=== PATIENT | male | born 1955 | race Caucasian/White ===

== ENCOUNTER 2017-07-16 06:39 | Day surgery (SDC) | payer MEDICARE, OTHER ==
[2017-07-12 12:18] VITALS: BMI 31.5
--- NOTE | 2017-07-15 12:28 | P.GSHP ---
History of Present Illness H&P Date: 07/16/17 CHIEF COMPLAINT: Gastrointestinal bleed HISTORY OF PRESENT ILLNESS: The patient is a 61-year-old male who presents with gastrointestinal bleed. Upper and lower endoscopy were offered for further evaluation and management. PAST MEDICAL HISTORY: Please see list. PAST SURGICAL HISTORY: Please see list. MEDICATIONS: Please see list. ALLERGIES: Please see list. SOCIAL HISTORY: No illicit drug use FAMILY HISTORY: No reports of Crohn disease or ulcerative colitis. REVIEW OF ORGAN SYSTEMS: CONSTITUTIONAL: No reports of fevers or chills. GI: Denies any blood in stools or constipation. PHYSICAL EXAM: VITAL SIGNS: Stable GENERAL: Well-developed pleasant in no acute distress. HEENT: No scleral icterus. Extraocular movements grossly intact. Moist buccal mucosa. NECK: Supple without lymphadenopathy. CHEST: Unlabored respirations. Equal bilateral excursions. CARDIOVASCULAR: Regular rate and rhythm. Distal 2+ pulses. ABDOMEN: Soft, nondistended. MUSCULOSKELETAL: No clubbing, cyanosis, or edema. ASSESSMENT: 1. Gastrointestinal bleeding PLAN: 1. Recommend proceeding with an upper and lower endoscopy Past Medical History Past Medical History: Asthma, CVA/TIA, GERD/Reflux, Hyperlipidemia, Hypertension , Sleep Apnea/CPAP/BIPAP Additional Past Medical History / Comment(s): USES CPAP. HAS PACEMAKER. CVA X3 , SL WEAKNESS RT SIDE. BLOOD IN STOOL OR FROM RECTUM, BEGAN 1 MO AGO. History of Any Multi-Drug Resistant Organisms: None Reported Past Surgical History: Back Surgery, Cholecystectomy, Heart Catheterization With Stent, Pacemaker Additional Past Surgical History / Comment(s): RT LEG Artery repaired from cardiac cath. EXC CATARACTS MISHA. STENT REPLACED 2016. PACEMAKER - [employer] 10/2015. Past Anesthesia/Blood Transfusion Reactions: Motion Sickness Date of Last Stent Placement:: 01/29/2012 Type of Cardiac Device: Permanent Pacemaker Device Placement Date:: 02/13/12 Smoking Status: Never smoker - Past Family History Father Family Medical History: Coronary Artery Disease (CAD), Myocardial Infarction ([place] ) Medications and Allergies Home Medications Medication Instructions Recorded Confirmed Type Amitriptyline HCl [Elavil] 75 mg PO HS 11/02/15 07/12/17 History Aspirin EC [Ecotrin Low Dose] 81 mg PO DAILY 11/02/15 07/12/17 History Atorvastatin [Lipitor] 40 mg PO BID 11/02/15 07/12/17 History Budesonide [Pulmicort Flexhaler] 2 puff INHALATION RT-BID 11/02/15 07/12/17 History Isosorbide Mononitrate ER [Imdur] 30 mg PO DAILY 11/02/15 07/12/17 History Metoprolol Tartrate [Lopressor] 25 mg PO BID 07/12/17 07/12/17 History Nitroglycerin Sl Tabs [Nitrostat] 0.4 mg SUBLINGUAL Q5M PRN 07/12/17 07/12/17 History Omeprazole [PriLOSEC] 20 mg PO AC-BRKFST 07/12/17 07/12/17 History Allergies Allergy/AdvReac Type Severity Reaction Status Date / Time levofloxacin [From Levaquin] AdvReac Confusion Verified 07/12/17 11:50 red dye AdvReac Nausea & Verified 07/12/17 11:50 Vomiting & Diarrhea
[~2017-07-16 06:39] MED LIST: LACTATED RINGERS 1,000 ML IV SCH
[2017-07-16] MEDS ORDERED: LACTATED RINGERS 1,000 ML IV ONE (07:07)
[2017-07-16 07:14] VITALS: TEMP 98.3
[2017-07-16] MEDS ORDERED: PROPOFOL 10 MG/ML 20 ML VIAL IV ONE (07:23)
--- NOTE | 2017-07-16 07:24 | P.HPADDEND ---
H&P Addendum H&P Addendum Date: 07/16/17 Patient reports no further bleeding in the last week. We'll proceed with upper and lower endoscopy.
--- NOTE | 2017-07-16 07:37 | P.PCN ---
Date of Procedure: 07/16/17 Description of Procedure: PREOPERATIVE DIAGNOSIS: Gastroesophageal reflux disease Gastrointestinal bleed POSTOPERATIVE DIAGNOSIS: Gastroesophageal reflux disease Gastrointestinal bleed Diaphragmatic hiatal hernia without obstruction Erosive esophagitis OPERATION: Esophagogastroduodenoscopy with biopsies along antrum SURGEON: Alysha Krishna MD ANESTHESIA: MAC. INDICATIONS: The patient is a 61-year-old male who presents with a history of gastrointestinal bleed and reflux disease. Benefits and risks of the procedure were described. Informed consent was obtained. DESCRIPTION: The patient was brought into the endoscopy suite and laid in the left lateral decubitus position. An Olympus gastroscope was passed along the posterior oropharynx down to the distal esophagus where the squamocolumnar junction was encountered at 40 cm from the incisors. The stomach was entered and bile reflux was found. Additional findings are listed below. Biopsies with cold forceps were obtained of the antrum. The first through third portion of the duodenum was examined and unremarkable. Retroflexion of the scope confirmed Hill grade 2 lower esophageal valve. The squamocolumnar junction demostrated LA grade B erosive esophagitis. The stomach was desufflated. The patient tolerated the procedure well. FINDINGS: Squamocolumnar junction 40 cm from the incisors. Diaphragmatic hiatus at 41 cm. Hiatal hernia 1 cm. Hill grade 2 lower esophageal valve. LA grade B erosive esophagitis. Chronic gastritis, superficial No active duodenitis. RECOMMENDATIONS: Continue medical therapy. Further recommendations pending results of pathology report. Upper endoscopy as needed.
--- NOTE | 2017-07-16 07:56 | P.PCN ---
Date of Procedure: 07/16/17 Description of Procedure: PREOPERATIVE DIAGNOSIS: Gastrointestinal bleeding POSTOPERATIVE DIAGNOSIS: Gastrointestinal bleeding Hemorrhoids, internal. Cecal polyp OPERATION: Colonoscopy to the ileocecal valve and appendiceal orifice. Colonoscopy with cold forceps biopsy at cecum SURGEON: Alysha Krishna MD. ANESTHESIA: MAC. INDICATIONS: The patient is a 61-year-old female who presents for gastrointestinal bleeding. Benefits and risks were described and informed consent was obtained. DESCRIPTION OF PROCEDURE: The patient had undergone Gatorade, MiraLAX and Dulcolax prep. He had been brought into the operating room and laid in the left lateral decubitus position. After adequate intravenous sedation, the rectum was examined with 2% lidocaine jelly. The prostate was smooth and without abnormality No external hemorrhoids were encountered. The rectal tone was within normal limits. No lesions were palpated in the rectal vault. An Olympus colonoscope was advanced until the ileocecal valve and appendiceal orifice were clearly viewed. The prep was excellent with clear visualization of the mucosal folds. The scope was removed with visualization of each mucosal fold. No scattered diverticulosis was encountered. Cecal colonic polyp was found. No evidence of focal colitis was found. Retroflexion of the scope demonstrated grade 3 internal hemorrhoids without active bleeding or inflammation. The colon was desufflated. The patient had tolerated the procedure well. Withdrawal time was over 6 minutes. FINDINGS: Internal hemorrhoids, grade 3, with recent inflammation No external prolapsed hemorrhoids. No arteriovenous malformations. No scattered diverticulosis No focal colitis. Cecal polyp 2 mm removed hyperplastic RECOMMENDATIONS: Lower endoscopy in 8 to 10 years per screening guidelines, 2025. Plan - Discharge Summary Discharge Rx Participant: No New Discharge Prescriptions: No Action Isosorbide Mononitrate ER [Imdur] 30 mg PO DAILY Budesonide [Pulmicort Flexhaler] 2 puff INHALATION RT-BID Atorvastatin [Lipitor] 40 mg PO BID Aspirin EC [Ecotrin Low Dose] 81 mg PO DAILY Amitriptyline HCl [Elavil] 75 mg PO HS Metoprolol Tartrate [Lopressor] 25 mg PO BID Nitroglycerin Sl Tabs [Nitrostat] 0.4 mg SUBLINGUAL Q5M PRN PRN Reason: CP Omeprazole [PriLOSEC] 20 mg PO AC-BRKFST Discharge Medication List Amitriptyline HCl [Elavil] 75 mg PO HS 11/02/15 [History] Aspirin EC [Ecotrin Low Dose] 81 mg PO DAILY 11/02/15 [History] Atorvastatin [Lipitor] 40 mg PO BID 11/02/15 [History] Budesonide [Pulmicort Flexhaler] 2 puff INHALATION RT-BID 11/02/15 [History] Isosorbide Mononitrate ER [Imdur] 30 mg PO DAILY 11/02/15 [History] Metoprolol Tartrate [Lopressor] 25 mg PO BID 07/12/17 [History] Nitroglycerin Sl Tabs [Nitrostat] 0.4 mg SUBLINGUAL Q5M PRN 07/12/17 [History] Omeprazole [PriLOSEC] 20 mg PO AC-BRKFST 07/12/17 [History] Follow up Appointment(s)/Referral(s): Alysha Krishna MD [STAFF PHYSICIAN] - 07/31/17 Patient Instructions/Handouts: Hemorrhoids (GEN), Rectal Bleeding (DC) Discharge Disposition: HOME SELF-CARE
[2017-07-16 08:19] VITALS: BP 133/72; PULSE 62; RESP 16
== END 2017-07-16 08:36 | disposition home or self-care (01) ==
LOC: ORWHC2ENDO 06:39
PROVIDERS: ATTEND Surgery Plastic and Reconstructive Surgery
DX: K29.30 Chronic superficial gastritis without bleeding (principal); D12.0 Benign neoplasm of cecum; K64.2 Third degree hemorrhoids; K21.0 Gastro-esophageal reflux disease with esophagitis; K22.10 Ulcer of esophagus without bleeding; E78.5 Hyperlipidemia, unspecified; I10 Essential (primary) hypertension; I25.10 Atherosclerotic heart disease of native coronary artery without angina pectoris; J44.9 Chronic obstructive pulmonary disease, unspecified; I69.351 Hemiplegia and hemiparesis following cerebral infarction affecting right dominant side; G47.33 Obstructive sleep apnea (adult) (pediatric); Z99.89 Dependence on other enabling machines and devices; Z95.0 Presence of cardiac pacemaker; Z95.5 Presence of coronary angioplasty implant and graft; Z79.82 Long term (current) use of aspirin; Z79.51 Long term (current) use of inhaled steroids; Z79.891 Long term (current) use of opiate analgesic; Z79.899 Other long term (current) drug therapy; Z88.1 Allergy status to other antibiotic agents; Z91.09 Other allergy status, other than to drugs and biological substances
CPT/HCPCS: 88305; 45380; 43239; J2704

== ENCOUNTER 2017-08-03 07:09 | Day surgery (SDC) | payer MEDICARE, OTHER ==
[2017-08-01 10:11] VITALS: BMI 32.3
[~2017-08-03 07:09] MED LIST changes: +DEXAMETHASONE SOD PHOSPHATE 10 MG/ML 1 ML VIAL IV ONE; +LIDOCAINE 1% 20 ML VIAL (10MG/ML) FOR IV START INTRADERMA PRN; +MIDAZOLAM 2 MG/2 ML VIAL IV PRN; +ONDANSETRON 4 MG/2 ML VIAL IVP ONE; +Pre Op ABX Message 1 EACH MISC MISCELLANE ONE; +SCOPOLAMINE 1.5MG/72HR PATCH TRANSDERM ONE
[2017-08-03] MEDS ORDERED: HEPARIN SODIUM,PORCINE 5,000 UNIT/ML 1 ML VIAL SQ ONE (07:41)
--- NOTE | 2017-08-03 07:41 | P.GSHP ---
History of Present Illness H&P Date: 08/03/17 CHIEF COMPLAINT: Rectal bleeding HISTORY OF PRESENT ILLNESS: The patient is a 61-year-old male who presents for removal of hemorrhoids. PAST MEDICAL HISTORY: Please see list. PAST SURGICAL HISTORY: Please see list. MEDICATIONS: Please see list. ALLERGIES: Please see list. SOCIAL HISTORY: No illicit drug use FAMILY HISTORY: No reports of Crohn disease or ulcerative colitis. REVIEW OF ORGAN SYSTEMS: CONSTITUTIONAL: No reports of fevers or chills. PHYSICAL EXAM: VITAL SIGNS: Stable GENERAL: Well-developed pleasant in no acute distress. HEENT: No scleral icterus. Extraocular movements grossly intact. Moist buccal mucosa. NECK: Supple without lymphadenopathy. CHEST: Unlabored respirations. Equal bilateral excursions. CARDIOVASCULAR: Regular rate and rhythm. Distal 2+ pulses. ABDOMEN: Soft, nontender, nondistended. MUSCULOSKELETAL: No clubbing, cyanosis, or edema. ASSESSMENT: 1. Rectal bleeding PLAN: 1. Recommend removal of hemorrhoids Past Medical History Past Medical History: Asthma, CVA/TIA, GERD/Reflux, Hyperlipidemia, Hypertension , Sleep Apnea/CPAP/BIPAP Additional Past Medical History / Comment(s): USES CPAP. HAS PACEMAKER. CVA X3 , SL WEAKNESS RT SIDE. BLOOD IN STOOL OR FROM RECTUM, BEGAN 1 MO AGO. History of Any Multi-Drug Resistant Organisms: None Reported Past Surgical History: Back Surgery, Cholecystectomy, Heart Catheterization With Stent, Pacemaker Additional Past Surgical History / Comment(s): RT LEG Artery repaired from cardiac cath. EXC CATARACTS MISHA. STENT REPLACED 2016. PACEMAKER - [employer] 10/2015. colonoscopy 07/15/2017 Past Anesthesia/Blood Transfusion Reactions: Motion Sickness Date of Last Stent Placement:: 01/29/2012 Type of Cardiac Device: Permanent Pacemaker Device Placement Date:: 02/13/12 Smoking Status: Never smoker - Past Family History Father Family Medical History: Coronary Artery Disease (CAD), Myocardial Infarction ([place] ) Medications and Allergies Home Medications Medication Instructions Recorded Confirmed Type Amitriptyline HCl [Elavil] 75 mg PO HS 11/02/15 08/03/17 History Aspirin EC [Ecotrin Low Dose] 81 mg PO DAILY 11/02/15 08/03/17 History Atorvastatin [Lipitor] 40 mg PO HS 11/02/15 08/03/17 History Budesonide [Pulmicort Flexhaler] 2 puff INHALATION RT-BID 11/02/15 08/03/17 History Isosorbide Mononitrate ER [Imdur] 30 mg PO QAM 11/02/15 08/03/17 History Metoprolol Tartrate [Lopressor] 12.5 mg PO BID 07/12/17 08/03/17 History Nitroglycerin Sl Tabs [Nitrostat] 0.4 mg SUBLINGUAL Q5M PRN 07/12/17 08/03/17 History Docusate [Colace] 100 mg PO HS 08/01/17 08/03/17 History Polyethylene Glycol 3350 [Clearlax] 17 gm PO DAILY PRN 08/01/17 08/03/17 History Allergies Allergy/AdvReac Type Severity Reaction Status Date / Time levofloxacin [From Levaquin] AdvReac Confusion Verified 08/01/17 10:01 red dye AdvReac Nausea & Verified 08/01/17 10:01 Vomiting & Diarrhea Surgical - Exam Vital Signs Temp Pulse Resp BP Pulse Ox 98.3 F 60 16 153/76 99 08/03/17 07:26 08/03/17 07:26 08/03/17 07:26 08/03/17 07:26 08/03/17 07:26
[2017-08-03] MEDS ORDERED: metroNIDAZOLE-NS PMX 500 MG in SALINE 100 100ML.BAG IVPB ONE (07:45)
[2017-08-03] MEDS ORDERED: BUPIVACAINE LIPOSOME/PF 1.3% 20 ML, SODIUM CHLORIDE 0.9% 10 ML MISCELLANE ONE ×2 (07:45)
[2017-08-03] MEDS ORDERED: ceFAZolin IN SWFI 2 GM/20 ML SYRINGE IVP ONE (07:45)
[2017-08-03] MEDS ORDERED: MIDAZOLAM 2 MG/2 ML VIAL ONE ×2 (09:04)
[2017-08-03] MEDS ORDERED: diphenhydrAMINE 50 MG/ML 1 ML VIAL ONE ×2 (09:04)
[2017-08-03] MEDS ORDERED: fentaNYL (PF) 50 MCG/ML 2 ML AMP ONE ×2 (09:04)
[2017-08-03] MEDS ORDERED: LIDOCAINE 1%-EPI 1:100,000 30 ML VIAL SUBMUCOSAL ONE (09:39)
--- NOTE | 2017-08-03 10:02 | P.OP ---
Date of Procedure: 08/03/17 Description of Procedure: SURGEON: FAWN STALEY MD SILVERWARE WASHER: NONE. PREOPERATIVE DIAGNOSES: 1. History of complicated internal hemorrhoids, grade 4. 2. History of complicated external hemorrhoids, grade 4. 3. History of rectal bleeding. POSTOPERATIVE DIAGNOSES: 1. History of complicated internal hemorrhoids, grade 4. 2. History of complicated external hemorrhoids, grade 4. 3. History of rectal bleeding. OPERATION: 1. Excision of internal and external hemorrhoids x 3 using LigaSure. ANESTHESIA: MAC, spinal with Exparel mixture. ESTIMATED BLOOD LOSS: 3 mL. PATHOLOGY: 1. Internal, external hemorrhoidal complex x 3. FINDINGS: 1. Grade 4 internal/external hemorrhoidal cushion 3 excised. 2. No anal stricture upon excision of hemorrhoidal complexes. INDICATIONS: The patient is a 61-year-old male who presents with rectal bleeding including complicated internal/external hemorrhoids. He completed a colonoscopy. Surgical intervention was described for hemorrhoidectomy. Benefits and risks of the procedure, including bleeding, infection, incontinence , recurrent pain and recurrence of the hemorrhoids were discussed in detail. Informed consent was obtained. DESCRIPTION: Patient was brought to the operating room. After spinal anesthetic and IV sedation, he was then repositioned the prone jackknife position. Next, the perineum and buttocks was spread apart using Mastisol. The perineum was then prepped and draped in standard sterile fashion using Betadine. Preoperative medication was confirmed. Prior to incision, a timeout protocol was confirmed with surgical team. Initially 2 fingers was easily inserted for dilation of the anus. A perineal block using Exparel was placed. Grade 4 hemorrhoids along all 3 quadrants were identified. Next, using a Hill-Rhodes anoscope, each hemorrhoidal cushion was addressed using a hand-held LigaSure after elevating each hemorrhoidal complex using forceps. At the end of the case, digital evaluation were performed without any features of the anal stricture or stenosis. At the 6-o'clock position, the anal muscle fiber was identified. Hemostasis was checked. Several 4 x 4 gauze and mesh underwear was placed. At the end of the procedure, needle, sponge, and counts had been verified correct by the surgical scrub technologist. The patient then had tolerated the procedure well. Intraoperative findings including postoperative care instructions were discussed. Plan - Discharge Summary New Discharge Prescriptions: No Action Isosorbide Mononitrate ER [Imdur] 30 mg PO QAM Budesonide [Pulmicort Flexhaler] 2 puff INHALATION RT-BID Atorvastatin [Lipitor] 40 mg PO HS Aspirin EC [Ecotrin Low Dose] 81 mg PO DAILY Amitriptyline HCl [Elavil] 75 mg PO HS Metoprolol Tartrate [Lopressor] 12.5 mg PO BID Nitroglycerin Sl Tabs [Nitrostat] 0.4 mg SUBLINGUAL Q5M PRN PRN Reason: CP Polyethylene Glycol 3350 [Clearlax] 17 gm PO DAILY PRN PRN Reason: Constipation Docusate [Colace] 100 mg PO HS Discharge Medication List Amitriptyline HCl [Elavil] 75 mg PO HS 11/02/15 [History] Aspirin EC [Ecotrin Low Dose] 81 mg PO DAILY 11/02/15 [History] Atorvastatin [Lipitor] 40 mg PO HS 11/02/15 [History] Budesonide [Pulmicort Flexhaler] 2 puff INHALATION RT-BID 11/02/15 [History] Isosorbide Mononitrate ER [Imdur] 30 mg PO QAM 11/02/15 [History] Metoprolol Tartrate [Lopressor] 12.5 mg PO BID 07/12/17 [History] Nitroglycerin Sl Tabs [Nitrostat] 0.4 mg SUBLINGUAL Q5M PRN 07/12/17 [History] Docusate [Colace] 100 mg PO HS 08/01/17 [History] Polyethylene Glycol 3350 [Clearlax] 17 gm PO DAILY PRN 08/01/17 [History]
[2017-08-03 10:22] VITALS: TEMP 98.2
[2017-08-03 10:24] VITALS: RESP 16
[2017-08-03 14:06] VITALS: BP 128/76; PULSE 66
== END 2017-08-03 16:35 | disposition home or self-care (01) ==
LOC: OR 07:09
PROVIDERS: ATTEND Surgery Plastic and Reconstructive Surgery
DX: K64.3 Fourth degree hemorrhoids (principal); K64.4 Residual hemorrhoidal skin tags; J45.909 Unspecified asthma, uncomplicated; K21.9 Gastro-esophageal reflux disease without esophagitis; E78.5 Hyperlipidemia, unspecified; I10 Essential (primary) hypertension; G47.33 Obstructive sleep apnea (adult) (pediatric); I69.351 Hemiplegia and hemiparesis following cerebral infarction affecting right dominant side; Z95.0 Presence of cardiac pacemaker; Z95.5 Presence of coronary angioplasty implant and graft; Z99.89 Dependence on other enabling machines and devices; Z79.82 Long term (current) use of aspirin; Z79.51 Long term (current) use of inhaled steroids; Z79.899 Other long term (current) drug therapy; Z88.1 Allergy status to other antibiotic agents; Z91.09 Other allergy status, other than to drugs and biological substances
CPT/HCPCS: 88304; 46260; J2250; J1200; J1644; J1100; J2405; J3010; C9290; J0690

== ENCOUNTER 2017-08-15 01:23 | Emergency (ER) | payer MEDICARE, OTHER ==
[2017-08-15] MEDS ORDERED: ACETAMINOPHEN TAB 500 MG TAB ONE (02:56)
[2017-08-15 06:32] LABS: Partial Thromboplastin Time 22.1 sec (22.0-30.0); Prothrombin Time 9.8 sec (9.0-12.0)
[2017-08-15 06:34] LABS: Basophils % (A) 0 %; Eosinophils # (A) 0.1 k/uL (0-0.7); Eosinophils % (A) 1 %; HCT 42.5 % (39.0-53.0); HGB 14.4 gm/dL (13.0-17.5); Lymphocytes # (A) 1.5 k/uL (1.0-4.8); Lymphocytes % (A) 18 %; MCH 28.8 pg (25.0-35.0); MCV 84.8 fL (80.0-100.0); Mean Platelet Volume 6.8; Monocytes # (A) 0.5 k/uL (0-1.0); Monocytes % (A) 6 %; Neutrophils # (A) 6.4 k/uL (1.3-7.7); Neutrophils % (A) 74 %; Platelet Count 290 k/uL (150-450); RBC 5.01 m/uL (4.30-5.90); RDW 13.3 % (11.5-15.5); WBC 8.7 k/uL (3.8-10.6)
[2017-08-15 06:37] LABS: ALT 39 U/L (21-72); AST 27 U/L (17-59); Albumin 4.2 g/dL (3.5-5.0); Alkaline Phosphatase 105 U/L (38-126); Anion Gap 14 mmol/L; Blood Urea Nitrogen 12 mg/dL (9-20); Calcium 9.4 mg/dL (8.4-10.2); Carbon Dioxide 27 mmol/L (22-30); Chloride 100 mmol/L (98-107); Glucose 111 mg/dL (74-99); Potassium 4.7 mmol/L (3.5-5.1); Sodium 141 mmol/L (137-145); Total Bilirubin 0.5 mg/dL (0.2-1.3); Total Protein 7.1 g/dL (6.3-8.2)
== END 2017-08-15 02:56 | disposition home or self-care (01) ==
LOC: EC 01:23
DX: K62.5 Hemorrhage of anus and rectum (principal); Z79.82 Long term (current) use of aspirin; Z79.899 Other long term (current) drug therapy; Z79.51 Long term (current) use of inhaled steroids; Z88.1 Allergy status to other antibiotic agents; Z91.09 Other allergy status, other than to drugs and biological substances; Z98.890 Other specified postprocedural states
CPT/HCPCS: 36415; 80053; 85025; 85610; 85730; 99283

== ENCOUNTER → 2017-12-11 | Outpatient (CLI) | payer MEDICARE, OTHER ==
--- NOTE | 2017-12-11 18:07 | PN ---
PROGRESS NOTE SLEEP CENTER PROGRESS NOTE: This is a 62-year-old male patient coming in for a followup regarding his obstructive sleep apnea. I diagnosed this patient with obstructive sleep apnea back in 2014. At that time the patient was diagnosed having moderate to severe LAISHA with an AHI of 22. The patient has been on CPAP therapy for the past 3 years and he is coming in for a follow-up compliancy check and he wants his supplies to be renewed. I checked his CPAP machine. He has an auto set ResMed unit with a minimum pressure of 4, maximum pressure of 20. I noted the compliance data to be excellent. His CPAP use for more than 4 hours is 100%. He is averaging around 6.9 hours of CPAP use per night. His AHI while on treatment is down to 0.8. His average pressure is 11 and his leak factor is 6 L/minute. Over the past 3 years the patient has gained about 15 pounds. He used to weight 210 and is up to 225. Nevertheless, he is benefitting from the treatment. His sleep quality is the same, which is very good. He is waking up refreshed and alert during the day. No hypersomnia or sleepiness. No falling asleep while driving or performing routine day-to-day activities. REVIEW OF SYSTEMS: CONSTITUTIONAL: Positive for weight gain. Otherwise, no angina, no shortness of breath. No nocturnal heartburn. No dreams. No nightmares. No restlessness in the lower extremities. No pain. No depression or anxiety. Twelve-point review of systems was done. Positive findings were all mentioned above in the history of present illness. PHYSICAL EXAMINATION: BP is 138/70, pulse 62, respirations 16, temperature 98.3, saturation 97% on room air. Weight is 225, height is 5 feet 9 inches, neck size 18-1/2 inches. GENERAL APPEARANCE: Calm, comfortable. Head is atraumatic, normocephalic. Neck is short, supple. Crowding in posterior pharynx. There is no goiter or neck mass. LUNGS: Clear to auscultation. HEART: Sounds regular rate and rhythm. Normal S1, S2. No S3. No murmurs. ABDOMEN: Soft, nontender. No organomegaly. EXTREMITIES: No edema. No cyanosis or clubbing. IMPRESSION: 1. Obstructive sleep apnea, moderate to severe, with AHI of 22, currently on CPAP. The patient is utilizing APAP minimum pressure of 4, maximum pressure of 20. 2. Hypersomnia, recovered. 3. Previous history of cerebrovascular accident. 4. Coronary artery disease. 5. Hypertension. 6. Hyperlipidemia. 7. Bronchial asthma. 8. Chronic back pain. PLAN: 1. Continue CPAP therapy at the same level of pressure. 2. Renew the patient's supplies. The patient is using an AirFit P10 nose pillow, large size, and this will be renewed through [facility]. 3. Encourage weight loss. 4. See me back in a few years in followup. MMODL / IJN: [id number] /
== END | disposition home or self-care (01) ==
LOC: SLEEP 15:29
PROVIDERS: ATTEND Internal Medicine Critical Care Medicine
DX: G47.33 Obstructive sleep apnea (adult) (pediatric) (principal); I25.10 Atherosclerotic heart disease of native coronary artery without angina pectoris; I10 Essential (primary) hypertension; E78.5 Hyperlipidemia, unspecified; J45.909 Unspecified asthma, uncomplicated; M54.9 Dorsalgia, unspecified; G89.29 Other chronic pain; Z99.89 Dependence on other enabling machines and devices; Z86.73 Personal history of transient ischemic attack (TIA), and cerebral infarction without residual deficits

== ENCOUNTER → 2018-06-21 | Outpatient (CLI) | payer BC, MEDICARE ==
[2018-06-21 17:10] LABS: HCT 41.5 % (39.0-53.0); HGB 13.8 gm/dL (13.0-17.5); MCH 29.8 pg (25.0-35.0); MCHC 33.3 g/dL (31.0-37.0); MCV 89.5 fL (80.0-100.0); Mean Platelet Volume 7.1; Platelet Count 199 k/uL (150-450); RBC 4.63 m/uL (4.30-5.90); WBC 6.2 k/uL (3.8-10.6)
[2018-06-21 17:24] LABS: Anion Gap 5 mmol/L; Blood Urea Nitrogen 18 mg/dL (9-20); Carbon Dioxide 31 mmol/L (22-30); Chloride 105 mmol/L (98-107); Potassium 4.5 mmol/L (3.5-5.1); Sodium 141 mmol/L (137-145)
== END | disposition home or self-care (01) ==
LOC: LABPAT 16:43
PROVIDERS: ATTEND Internal Medicine Interventional Cardiology
DX: Z01.812 Encounter for preprocedural laboratory examination (principal); R42 Dizziness and giddiness; R06.02 Shortness of breath; I10 Essential (primary) hypertension
CPT/HCPCS: 36415; 80051; 82565; 84520; 85027

== ENCOUNTER 2018-07-04 10:13 | Day surgery (SDC) | payer MEDICARE, BC ==
[~2018-07-04 10:13] MED LIST changes: +ALPRAZolam 0.25 MG TAB PO PRN; +ALPRAZolam 0.5 MG TAB PO PRN; +ASPIRIN 325 MG TAB PO STA; +ATORVASTATIN 80 MG TAB PO STA; -DEXAMETHASONE SOD PHOSPHATE 10 MG/ML 1 ML VIAL IV ONE; -LACTATED RINGERS 1,000 ML IV SCH; -LIDOCAINE 1% 20 ML VIAL (10MG/ML) FOR IV START INTRADERMA PRN; -MIDAZOLAM 2 MG/2 ML VIAL IV PRN; +NITROGLYCERIN SL TABS 0.4 MG TAB SUBLINGUAL PRN; -ONDANSETRON 4 MG/2 ML VIAL IVP ONE; -Pre Op ABX Message 1 EACH MISC MISCELLANE ONE; -SCOPOLAMINE 1.5MG/72HR PATCH TRANSDERM ONE; +SODIUM CHLORIDE 0.9% 1,000 ML in EMPTY BAG 1 BAG IV ONE
[2018-07-04] MEDS ORDERED: LIDOCAINE 1% INJ 10MG/ML (20 ML MDV) ONE (17:41)
[2018-07-04] MEDS ORDERED: VERAPAMIL 2.5 MG/ML 2 ML AMP ONE (17:41)
[2018-07-04] MEDS ORDERED: HEPARIN SODIUM 1,000 UN/ML (10ML VL) ONE (17:41)
[2018-07-04] MEDS ORDERED: MIDAZOLAM 2 MG/2 ML VIAL IVP ONE (18:00)
[2018-07-04] MEDS ORDERED: LIDOCAINE 1% INJ 10MG/ML (20 ML MDV) SQ ONE (18:01)
[2018-07-04] MEDS ORDERED: VERAPAMIL SYRINGE (5 MG/10 ML) INTRAARTER ONE (18:02)
[2018-07-04] MEDS ORDERED: HYDROmorphone 2 MG/ML 1 ML SYRINGE IVP ONE (18:03)
[2018-07-04] MEDS ORDERED: HEPARIN SODIUM 1,000 UN/ML (10ML VL) IV ONE ×2 (18:03→18:52)
[2018-07-04] MEDS ORDERED: CLOPIDOGREL 75 MG TAB ONE ×2 (18:28)
[2018-07-04] MEDS ORDERED: ADENOSINE 90 MG in SODIUM CHLORIDE 0.9% 60 ML IVP ONE (18:30)
[2018-07-04] MEDS: NITROGLYCERIN 1000MCG/10ML SYRINGE INTRACORON ONE ×2 (18:30→18:47)
[2018-07-04] MEDS ORDERED: CLOPIDOGREL 75 MG TAB PO ONE (18:35)
[2018-07-04] MEDS ORDERED: hydrALAZINE HCL 20 MG/ML 1 ML VIAL ONE ×2 (18:56→19:31)
[2018-07-04] MEDS ORDERED: METOPROLOL TARTRATE 5 MG/5 ML VIAL IVP ONE ×2 (18:56→18:58)
[2018-07-04] MEDS ORDERED: hydrALAZINE HCL 20 MG/ML 1 ML VIAL IV ONE (18:58)
[2018-07-04] MEDS ORDERED: IOPAMIDOL-370 150ML BTL INJ ONE (18:58)
[2018-07-04] MEDS ORDERED: MECLIZINE 25 MG TAB PO PRN (19:23)
[2018-07-04] MEDS ORDERED: traMADol 50 MG TAB PO PRN (19:23)
[2018-07-04] MEDS ORDERED: NITROGLYCERIN SL TABS 0.4 MG TAB SUBLINGUAL PRN ×2 (19:23→19:24)
[2018-07-04] MEDS ORDERED: POLYETHYLENE GLYCOL 3350 17 GM POWD.PACK PO PRN (19:23)
[2018-07-04] MEDS ORDERED: ATROPINE SULFATE 0.1 MG/ML 10ML SYRINGE IV PRN (19:24)
[2018-07-04] MEDS ORDERED: ZOLPIDEM 5 MG TAB PO PRN (19:24)
[2018-07-04] MEDS ORDERED: RX INFO: IV CONTRAST WAS GIVEN 1 EACH MISC MISCELLANE PRN (19:24)
[2018-07-04] MEDS ORDERED: MAG HYDROX/AL HYDROX/SIMETH 30 ML CUP PO PRN (19:24)
[2018-07-04] MEDS ORDERED: SODIUM CHLORIDE 0.9% 1,000 ML IV SCH (19:30)
[2018-07-04] MEDS ORDERED: HYDROmorphone 0.5 MG/0.5 ML SYRINGE IVP PRN (19:34)
[2018-07-04] MEDS ORDERED: FLUTICASONE 110 MCG INHALER INHALATION SCH ×2 (20:00→22:35)
--- NOTE | 2018-07-04 20:09 | LTR ---
July 04, 2018 To: Dr. Marc Blake Re: Eric Arellano (55) Dear Dr. Blake, Mr. Eric Arellano underwent heart catheterization and was found to have severe disease involving the mid right coronary artery. He underwent successful stenting of the right coronary artery with good angiographic results and without any complication. I want to thank you for allowing us to participate in his care and please do not hesitate to call if you have questions or concerns. Sincerely, MD MARTIR Montanez / CHRIS: [id number] /
--- NOTE | 2018-07-04 20:09 | CC ---
CARDIAC CATHETERIZATION REPORT DATE OF SERVICE: 07/04/2018 PERFORMING PHYSICIAN: Ag Young MD, rodeo clown. PROCEDURES PERFORMED: 1. Selective right and left coronary angiogram. 2. Left heart catheterization. 3. Fractional flow reserve (FFR) of the right coronary artery. 4. Successful stenting of the mid right coronary artery using a 4.0 x 33 and a 3.5 x 12 mm Xience drug-eluting stents with excellent angiographic results. INDICATION: This is a pleasant 62-year-old gentleman with known history of coronary artery disease and prior stenting of the diagonal branch of the LAD. He was experiencing exertional shortness of breath that reminded him of his symptoms before his coronary artery stenting back in 2011. Because of that, a heart catheterization was advised. APPROACH: Right radial artery. COMPLICATIONS: None. LEVEL OF SEDATION: Moderate, with sedation length of 60 minutes. PROCEDURE DESCRIPTION: After obtaining informed consent, the patient was brought to the cardiac labor arbitrator. The right radial artery was cannulated using micropuncture technique and the micropuncture wire passed easily. Then I placed a 6-Salvadorean sheath in the right radial artery. I gave the patient 2 mg of Verapamil IA and 10,000 units of heparin and subsequently of heparin as well. I did selective right and left coronary angiogram using JR4 and JL3.5 catheters. Left heart catheterization was performed using 6-Salvadorean pigtail catheter. After that I did FFR of the right coronary artery and stenting of the right coronary artery. Please see a separate paragraph for that. SELECTIVE CORONARY ANGIOGRAM: 1. The right coronary artery is a large-caliber vessel and it is a dominant vessel. The proximal right appeared to be angiographically normal. The mid right had a long tubular lesion that appeared to be in the range of 60% to 70%. Then I did FFR on it and that came back to be 0.81. The right distally appeared to be normal and bifurcated into PDA and PLV branches. Both are angiographically normal. 2. The left main is angiographically normal. It bifurcates into left circumflex and left anterior descending artery. 3. The left circumflex is a large-caliber vessel. It is a nondominant vessel. The proximal circumflex appeared to be angiographically normal. The mid circumflex is normal and gives rise to a large OM branch which appeared to be normal and the circumflex continued after that as a medium-caliber vessel in the AV groove. 4. The LAD. The proximal LAD is angiographically normal. It gives rise to a large diagonal branch which is stented and the stent is patent. The mid LAD and distal LAD are angiographically normal. HEMODYNAMICS: The left ventricular end-diastolic pressure was 12 mmHg without any significant gradient across the aortic valve. FFR OF THE RIGHT CORONARY ARTERY AND ANGIOPLASTY OF THE RCA: Anticoagulation was initiated using heparin with 10,000 units and an additional 3000 units throughout the procedure with continuous ACT monitoring as well. I did after zeroing the Doppler wire and equalizing between the Doppler wire and the guiding catheter which was a JR4 guiding catheter, I did an FFR per IV adenosine infusion and FFR came in to be 0.81. I decided to proceed with stenting of the right coronary artery. I attempted doing direct stenting of the RCA, but I was unable. At that point I did balloon angioplasty using a 3.5 mm balloon and I attempted the stent again, but I was unable. At that point, I was able to get the stent with adjunctive use of GuideLiner. The stent was 4.0 x 33, which was positioned under fluoroscopy guidance and deployed under 12 atmospheres for 20 seconds. The following angiogram showed what seems to be dissection which I decided to cover, and I did deploy 3.5 x 12 mm another Xience drug-eluting stent where the stent was positioned under fluoroscopy guidance and deployed under 12 atmospheres for 20 seconds. Then I did overlap area between the 2 stents. The following angiogram showed excellent angiographic results and the procedure was completed without any complication. CONCLUSION: 1. Severe disease involving the mid right coronary artery. 2. Patent stent in the first diagonal branch of the LAD. 3. Successful stenting of the mid RCA using 4.0 x 33 and 3.5 x 12 mm Xience ASHLY with excellent angiographic results. POST-PROCEDURE MANAGEMENT: 1. Dual anti-platelet therapy. 2. Risk factor modifications. 3. Follow up with the patient. MMODL / IJN: [id number] /
[2018-07-04] MEDS: METOPROLOL TARTRATE 12.5 MG TAB PO SCH (20:23)
[2018-07-04 20:40] VITALS: BMI 31.7
[2018-07-04] MEDS ORDERED: ATORVASTATIN 40 MG TAB PO SCH (21:00)
[2018-07-04] MEDS ORDERED: AMITRIPTYLINE HCL 25 MG TAB PO SCH (21:00)
[2018-07-05 06:36] LABS: Basophils % (A) 0 %; Eosinophils # (A) 0.1 k/uL (0-0.7); Eosinophils % (A) 1 %; HCT 46.9 % (39.0-53.0); HGB 15.5 gm/dL (13.0-17.5); Lymphocytes # (A) 1.3 k/uL (1.0-4.8); Lymphocytes % (A) 15 %; MCH 29.5 pg (25.0-35.0); MCHC 33.1 g/dL (31.0-37.0); MCV 89.3 fL (80.0-100.0); Mean Platelet Volume 6.9; Monocytes # (A) 0.6 k/uL (0-1.0); Monocytes % (A) 8 %; Neutrophils # (A) 6.4 k/uL (1.3-7.7); Neutrophils % (A) 75 %; Platelet Count 238 k/uL (150-450); RBC 5.25 m/uL (4.30-5.90); RDW 14.1 % (11.5-15.5); WBC 8.5 k/uL (3.8-10.6)
[2018-07-05 07:01] LABS: Anion Gap 11 mmol/L; Blood Urea Nitrogen 13 mg/dL (9-20); Calcium 9.3 mg/dL (8.4-10.2); Carbon Dioxide 26 mmol/L (22-30); Chloride 101 mmol/L (98-107); Glucose 105 mg/dL (74-99); Potassium 4.2 mmol/L (3.5-5.1); Sodium 138 mmol/L (137-145)
[2018-07-05] MEDS: METOPROLOL TARTRATE 12.5 MG TAB PO SCH (08:25)
[2018-07-05 08:29] VITALS: BP 130/69; PULSE 63; RESP 17; TEMP 98.3
[2018-07-05] MEDS ORDERED: ISOSORBIDE MONONITRATE ER 30 MG TAB.ER.24H PO SCH (09:00)
[2018-07-05] MEDS ORDERED: ASPIRIN 81 MG PO SCH (09:00)
--- NOTE | 2018-07-05 09:33 | DS ---
DISCHARGE SUMMARY ADMISSION DATE: July 04, 2018. DISCHARGE DATE: July 05, 2018 BRIEF HISTORY: This is a 62-year-old gentleman with known history of coronary artery disease who was experiencing exertional dyspnea concerning for angina equivalent. He underwent a heart catheterization and was found to have severe disease involving the mid right coronary artery which was stented with good angiographic results. The patient is going to be discharged home today on dual anti-platelet therapy and I will follow up with the patient in the office in a week. MMODL / IJN: [id number] /
[2018-07-05] MEDS ORDERED: CLOPIDOGREL 75 MG TAB PO SCH (19:25)
== END 2018-07-05 09:13 | disposition home or self-care (01) ==
LOC: CATHCVL 10:13 → 3SCARD 19:00 → CATHCVL 07-05 09:13
PROVIDERS: ATTEND Internal Medicine Interventional Cardiology
DX: I25.110 Atherosclerotic heart disease of native coronary artery with unstable angina pectoris (principal); E78.00 Pure hypercholesterolemia, unspecified; I10 Essential (primary) hypertension; E78.5 Hyperlipidemia, unspecified; Z95.5 Presence of coronary angioplasty implant and graft; Z95.0 Presence of cardiac pacemaker; Z79.82 Long term (current) use of aspirin; Z79.899 Other long term (current) drug therapy; Z88.3 Allergy status to other anti-infective agents; Z91.041 Radiographic dye allergy status
CPT/HCPCS: 94640 ×2; 93458; 93571; 85347; 80048; 85025; C9600; C1887 ×2; C1725; C1769; C1894; C1874; J2250; J1170; J0360; J2001; J1644; J0153; Q9967

== ENCOUNTER → 2018-09-03 | Outpatient (CLI) | payer MEDICARE, BC ==
--- NOTE | 2018-09-03 19:37 | PN ---
PROGRESS NOTE This is a 62-year-old male patient coming in for a followup regarding his LAISHA. The patient is known to have obstructive sleep apnea. The patient is on APAP, minimum of 4, maximum of 20. He is having some issues with his CPAP. At times his machine is quitting in the middle of the night. I noted that the patient is using AirFit P10 nose pillows. Based on the compliance data, the patient has been utilizing his machine every night. However, he has been averaging around 2.7 hours per night. He is also having issues with humidity, as the patient's humidity level is at 5 and at times he is feeling that his tubing and the mask are being filled with an excessive amount of fluid. For that reason, he is coming in for further advice. He is known to have coronary artery disease. Since his last evaluation, he has gotten 2 more stents. He also has undergone left torn meniscus repair. REVIEW OF SYSTEMS: Fourteen-point review of systems was done. Positive findings are all mentioned above in the history of present illness. His [place] score is 13. No recent weight gain or weight loss. PHYSICAL EXAMINATION: VITAL SIGNS: BP is 144/72, pulse 60 respirations 16, temperature 98.3, saturation 98% on room air. Height is 5 feet 9 inches. Weight 224, BMI 33. GENERAL APPEARANCE: Calm, comfortable. Head is atraumatic, normocephalic. NECK: Supple. No JVD. No goiter or neck mass. LUNGS: Diminished; otherwise clear. HEART: Heart sounds are regular rate and rhythm. Normal S1, S2. No S3, S4. No murmurs. ABDOMEN: Soft, nontender. No organomegaly. EXTREMITIES: No edema. No cyanosis or clubbing. Neurologically oriented x3. No focal neurological deficits. IMPRESSION: 1. Obstructive sleep apnea. The patient has an AHI of 22 and currently is using an APAP, minimum of 4, maximum of 20. 2. Suboptimal compliance. PLAN: 1. Change the humidity to Auto. 2. Change the climate control to Auto. 3. Increase the EPAP pressure minimum to 6 cm of water and keep the maximum at 20. 4. Switch this patient to a DreamWear [id number] mask. 5. See me back in followup if these interventions fail to improve his symptoms. The patient may also need a new CPAP machine if he continues to have these ongoing issues. MMODL / IJN: [id number] /
== END | disposition home or self-care (01) ==
LOC: SLEEP 15:33
PROVIDERS: ATTEND Internal Medicine Critical Care Medicine
DX: G47.33 Obstructive sleep apnea (adult) (pediatric) (principal); I25.10 Atherosclerotic heart disease of native coronary artery without angina pectoris; Z99.89 Dependence on other enabling machines and devices

== ENCOUNTER → 2019-02-12 | Day surgery (SDC) | payer MEDICARE, BC ==
[2019-02-10 10:15] VITALS: BMI 32.3
[~2019-02-12] MED LIST changes: +HEPARIN SODIUM 1,000 UN/ML (10ML VL) IV ONE; +HYDROmorphone 0.5 MG/0.5 ML SYRINGE IVP STA; +IOPAMIDOL-370 125ML BTL INJ ONE; +LIDOCAINE 1% INJ 10MG/ML (20 ML MDV) SQ ONE; +MIDAZOLAM 2 MG/2 ML VIAL IVP ONE; +RX INFO: IV CONTRAST WAS GIVEN 1 EACH MISC MISCELLANE PRN; +SODIUM CHLORIDE 0.9% 1,000 ML IV ONE; +SODIUM CHLORIDE 0.9% 1,000 ML IV SCH; +VERAPAMIL SYRINGE (5 MG/10 ML) INTRAARTER ONE; +hydrALAZINE HCL 20 MG/ML 1 ML VIAL IVP STA
[2019-02-12 10:20] VITALS: TEMP 98.2
--- NOTE | 2019-02-12 12:31 | P.PCN ---
Date of Procedure: 02/12/19 Operative Findings: CARDIAC CATHETERIZATION PERFORMING PHYSICIAN: Ag Young MD, RPVI PROCEDURE PERFORMED: 1. Selective right and left coronary angiogram 2. Left heart catheterization INDICATION: This is a 63-year-old gentleman with a past medical history significant for coronary artery disease and prior stenting of the RCA and diagonal branch of the LAD as well as hypertension and dyslipidemia was seen in the office recently for new onset of shortness of breath with exertion reminded him with the symptoms before the previous coronary stents. The symptoms started a few weeks ago. The symptoms were only exertional. Because of that coronary angiogram was advised. 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 Local anesthesia was performed using lidocaine subcutaneously. The right radial artery was cannulated using Seldinger technique, the guidewire passed easily, following that we advanced a 5-Cymraes sheath dilator assembly, the wire and dilator were removed and sheath was flushed. Following that, 2 mg of verapamil along with 5000 unit heparin were given. Selective right and left coronary angiogram using a 6-Cymraes JR4 and JL 3.5 catheters. Following that we did left heart catheterization using 6-Cymraes pigtail catheter. The procedure was completed there was no complication. SELECTIVE CORONARY ANGIOGRAM: The right coronary artery: Is a large caliber vessel ansa dominant vessel. The RCA is a stented in the midportion was mild in-stent restenosis. Distally bifurcates into PDA and PLV branches and both appeared to be angiographically normal. Left main: Is angiographically normal. Bifurcates into left circumflex and left anterior descending artery. The left circumflex: Is a large caliber vessel and nondominant vessel. The left circumflex in the midportion gives rises into a large OM branch which appears to be angiographically normal. Then it continues as a moderate caliber vessel in the AV groove. The left anterior descending artery: Has mild disease only. It gives rises into a large diagonal branch which is a stented in the midportion the stent is patent. Proximal to the stent there is a lesion appears to be in the range of 30-40% only. HEMODYNAMICS: The LVEDP was 12 mmHg without significant gradient across aortic valve. CONCLUSION: 1. Mild in-stent restenosis of the RCA 2. Mild disease involving the first diagonal branch prior to a stented segment. The stent itself is patent POSTPROCEDURE MANAGEMENT: Maximize medical treatment Follow-up with the patient
[2019-02-12 14:08] VITALS: RESP 16
[2019-02-12 17:53] VITALS: BP 117/58; PULSE 60
== END ==
LOC: CATHCVL 09:30
PROVIDERS: ATTEND Internal Medicine Interventional Cardiology
DX: I25.110 Atherosclerotic heart disease of native coronary artery with unstable angina pectoris (principal); T82.855A Stenosis of coronary artery stent, initial encounter; I10 Essential (primary) hypertension; E78.5 Hyperlipidemia, unspecified; E78.00 Pure hypercholesterolemia, unspecified; Z95.0 Presence of cardiac pacemaker; Z79.02 Long term (current) use of antithrombotics/antiplatelets; Z79.82 Long term (current) use of aspirin; Z79.51 Long term (current) use of inhaled steroids; Z79.899 Other long term (current) drug therapy; Z88.1 Allergy status to other antibiotic agents; Z91.048 Other nonmedicinal substance allergy status
CPT/HCPCS: 93458; C1769; C1894; J2250; J2001; J1644; Q9967

== ENCOUNTER → 2019-05-21 | Outpatient (CLI) | payer MEDICARE, BC ==
[2019-05-21 14:28] LABS: Albumin 4.3 g/dL (3.5-5.0); Calcium 9.5 mg/dL (8.4-10.2); Potassium 4.5 mmol/L (3.5-5.1); Total Bilirubin 0.5 mg/dL (0.2-1.3); Total Protein 7.1 g/dL (6.3-8.2)
[2019-05-21 14:30] LABS: Basophils % (A) 0 %; Eosinophils # (A) 0.3 k/uL (0-0.7); Eosinophils % (A) 3 %; HCT 42.4 % (39.0-53.0); HGB 14.5 gm/dL (13.0-17.5); Lymphocytes # (A) 1.2 k/uL (1.0-4.8); Lymphocytes % (A) 14 %; MCH 30.7 pg (25.0-35.0); MCHC 34.3 g/dL (31.0-37.0); MCV 89.5 fL (80.0-100.0); Mean Platelet Volume 7.6; Monocytes # (A) 0.5 k/uL (0-1.0); Monocytes % (A) 6 %; Neutrophils # (A) 6.4 k/uL (1.3-7.7); Neutrophils % (A) 75 %; Platelet Count 227 k/uL (150-450); RBC 4.73 m/uL (4.30-5.90); RDW 12.9 % (11.5-15.5); WBC 8.4 k/uL (3.8-10.6)
--- NOTE | 2019-05-21 14:32 | CT ---
EXAMINATION TYPE: CT angio chest DATE OF EXAM: 05/21/2019 COMPARISON: Chest x-ray November 05, 2015 HISTORY: Shortness of breath. CT DLP: 475 mGycm. Automated Exposure Control for Dose Reduction was Utilized. CONTRAST: CTA scan of the thorax is performed with IV Contrast, patient injected with 100 mL of Isovue 370, pul monary embolism protocol. MIP Images are created on CT scanner and reviewed. FINDINGS: LUNGS: Mild emphysematous changes present. There is mild linear scarring and/or atelectasis in the le ft lung base. Prominent left pericardial fat pad is seen. Some respiratory motion artifact degradatio n is present. Some dependent atelectasis in both bases. No suspicious focal consolidation. Calcified 6 mm nodular granuloma right mid lung axial image 71. No pleural effusion or pneumothorax is seen vivi aterally. MEDIASTINUM: There is satisfactory enhancement of the pulmonary artery and its branches, there is no CT evidence for pulmonary embolism. There are no greater than 1 cm noncalcified hilar or mediastina l lymph nodes. Trace pericardial effusion is seen anterior-inferior aspect. Mild cardiomegaly is pres ent. Dual lead pacemaker redemonstrated terminating in right atrium and right ventricle. There is sev ere three-vessel coronary artery calcification and/or stents. OTHER: Prominent subareolar bilateral gynecomastia. Cholecystectomy clips redemonstrated spine is str aightened with mild to moderate multilevel spurring mid to lower thoracic levels. Cannot exclude sign ificant narrowing greater than 50% at origin of celiac artery axial image 153 and coronal image 83 wi th poor definition and mild surrounding fat stranding. Impression from diaphragmatic major noted sagit dayne image 96. IMPRESSION: 1. No CT evidence for acute pulmonary embolism. 2. Mild emphysematous change with cardiomegaly and mild left basilar linear scarring. No suspicious a cute pulmonary process. 3. Cannot exclude median arcuate ligament syndrome as there is narrowing of celiac artery at its orig in sagittal image 96, cannot exclude inflammatory change at this level with mild fat stranding. Corre late clinically.
== END | disposition home or self-care (01) ==
LOC: RADCTMAIN 13:08
PROVIDERS: ATTEND Family Medicine
DX: J43.9 Emphysema, unspecified (principal); I51.7 Cardiomegaly; J98.4 Other disorders of lung; R06.00 Dyspnea, unspecified
CPT/HCPCS: 85379; 83880; 80053; 84484; 85025; 71275; 36415; Q9967

== ENCOUNTER → 2019-12-22 | Outpatient (CLI) | payer MEDICARE, BC | END | disposition home or self-care (01) | LOC: LABWHC1 11:49 | PROVIDERS: ATTEND Internal Medicine Critical Care Medicine | DX: Z53.9 Procedure and treatment not carried out, unspecified reason (principal) ==

== ENCOUNTER → 2020-11-09 | Outpatient (CLI) | payer MEDICARE, BC ==
--- NOTE | 2020-11-17 12:27 | P.ARTDOP ---
Arterial Doppler LOWER EXTREMITY ARTERIAL DOPPLER: DATE OF SERVICE: 11/09/2020 Reason for study: Bilateral leg pain. Doppler waveforms: Multiphasic bilaterally throughout. Pulse volume recording: []. Pressure gradients: None. Ankle-brachial indices: Greater than 1 bilaterally. Toe brachial indices: 0.85 on the right, 0.73 on the left Impression: Normal study.
== END | disposition home or self-care (01) ==
LOC: RADUSWWP 13:34
PROVIDERS: ATTEND Family Medicine
DX: M79.661 Pain in right lower leg (principal)
CPT/HCPCS: 93922

== ENCOUNTER → 2022-08-14 | Outpatient (CLI) | payer MEDICARE, BC ==
--- NOTE | 2022-08-14 17:07 | US ---
EXAMINATION TYPE: US scrotum with doppler. Grayscale and color Doppler Duplex imaging performed of rose hinojosa scrotum. DATE OF EXAM: 08/14/2022 COMPARISON: NONE CLINICAL INDICATION: Male, 66 years old with history of [id number] TESTICULAR PAIN; Left testicular pain x couple months EXAM MEASUREMENTS: TESTICLES: Right Testicle: 3.8 x 1.8 x 2.4 cm Left Testicle: 3.8 x 1.7 x 2.5 cm EPIDIDYMIS HEAD: Right Epididymis: 1.2 cm, 1.3cm cyst Left Epididymis: 1.3 cm, 1.1cm cyst Doppler performed to assess for testicular vascularity; good bilateral color flow and waveforms are s een. Presence of hydroceles: right - 3.4cm, left - 2.8cm Presence of varicoceles: no Small bilateral scrotal fluid collection or hydroceles. Last images show symmetric blood flow to the bilateral testicles. IMPRESSION: Symmetric blood flow to bilateral testicles noted.
== END | disposition home or self-care (01) ==
LOC: RADUSWWP 15:49
PROVIDERS: ATTEND Family Medicine
DX: N50.812 Left testicular pain (principal)
CPT/HCPCS: 76870; 93975

== ENCOUNTER → 2023-05-04 | Outpatient (CLI) | payer MEDICARE, BC ==
--- NOTE | 2023-05-04 13:20 | CT ---
EXAMINATION TYPE: CT abdomen pelvis wo con DATE OF EXAM: 05/04/2023 HISTORY: diarrhea x [address] DLP: 994.7 mGycm. Automated Exposure Control for Dose Reduction was Utilized. TECHNIQUE: CT scan of the abdomen and pelvis is performed without oral or IV contrast. COMPARISON: NONE FINDINGS: Within the limitations of a non-contrast study, the following observations are made. LUNG BASES: There is partial visualization of dual-lead pacemaker wires. LIVER/GB: Cholecystectomy clips are present. PANCREAS: No significant abnormality is seen. SPLEEN: No significant abnormality is seen. ADRENALS: No significant abnormality is seen. KIDNEYS: No renal stones or hydronephrosis is present bilaterally. BOWEL: No abnormal small or large bowel dilatation. GENITAL ORGANS: No gross abnormality seen. LYMPH NODES: No greater than 1cm abdominal or pelvic lymph nodes are appreciated. OSSEOUS STRUCTURES: Transitional type LVI vertebra is present. OTHER: Moderate-sized fat-containing inguinal hernias slightly larger on the left. Mild calcified pushpa que of the aorta extends into branch vessels IMPRESSION: No bowel obstruction. No suspicious findings are present on noncontrast CT.
== END | disposition home or self-care (01) ==
LOC: RADCTMAIN 12:52
PROVIDERS: ATTEND Family Medicine
DX: R19.7 Diarrhea, unspecified (principal)
CPT/HCPCS: 74176

== ENCOUNTER 2023-07-27 11:17 | Day surgery (SDC) | payer MEDICARE, BC ==
[2023-07-26 08:42] VITALS: BMI 32.0
[2023-07-27] MEDS: LACTATED RINGERS 1,000 ML IV SCH (11:46)
[2023-07-27 12:16] VITALS: PULSE 60; RESP 16; TEMP 97.5
[2023-07-27] MEDS ORDERED: PROPOFOL 10 MG/ML 20 ML VIAL IV ONE (13:08)
[2023-07-27] MEDS ORDERED: LIDOCAINE 1% INJ 10MG/ML (20 ML MDV) ONE (13:08)
--- NOTE | 2023-07-27 13:29 | P.PCN ---
Date of Procedure: 07/27/23 Procedure(s) Performed: BRIEF HISTORY: Patient is a 67-year-old pleasant white male scheduled for an elective colonoscopy as a part of evaluation of chronic diarrhea for the last few months duration. His been having bowel movements anywhere from 10-12 a day with no blood or mucus in the stool. PROCEDURE PERFORMED: Colonoscopywith biopsy. PREOPERATIVE DIAGNOSIS: chronic diarrhea of 3 months duration. IV sedation per Anesthesia. PROCEDURE: After informed consent was obtained, the patient, was brought into the endoscopy unit. IV sedation was administered by Anesthesia under continuous monitoring. Digital rectal examination was normal. Initially the Olympus CF-160 flexible video colonoscope was then inserted in the rectum, gradually advanced into the cecum without any difficulty. Careful examination was performed as the scope was gradually being withdrawn. Ileocecal valve and the appendiceal orifice were visualized and appeared normal. Prep was excellent. Mucosa of the cecum, appeared normal. In the sigmoid: There was a 3 mm polyp that was removed by cold biopsy. Rest of theascending colon, transverse colon, descending colon, sigmoid colon, and rectum appeared normal. in the proximal rectum there was a 3 mm polyp that was removed by cold biopsy..random biopsies were done from asce nding and descending colon to rule out microscopic/collagenous colitis.Retroflexion was performed in the rectum and no lesions were seen. The patient tolerated the procedure well. IMPRESSION: 3 mm ascending colon polyp status post cold biopsy 3 mm proximal rectal polyp status post cold biopsy Rest of the colon appeared normal RECOMMENDATIONS: Findings of this examination were discussed with the patient as well as his family. He was advised advised to follow with the biopsy results. If the biopsy revealed adenoma he can have a repeat colonoscopy in 5 years. In regards to the chronic diarrhea was advised to follow up in office in 3-4 weeks..
[2023-07-27 14:06] VITALS: BP 154/70
== END 2023-07-27 14:18 | disposition home or self-care (01) ==
LOC: ORWHC2ENDO 11:17
PROVIDERS: ATTEND Internal Medicine Gastroenterology
DX: D12.2 Benign neoplasm of ascending colon (principal); D12.8 Benign neoplasm of rectum; K52.9 Noninfective gastroenteritis and colitis, unspecified; I10 Essential (primary) hypertension; I25.10 Atherosclerotic heart disease of native coronary artery without angina pectoris; E78.5 Hyperlipidemia, unspecified; Z95.5 Presence of coronary angioplasty implant and graft; J45.909 Unspecified asthma, uncomplicated; G47.33 Obstructive sleep apnea (adult) (pediatric); Z86.73 Personal history of transient ischemic attack (TIA), and cerebral infarction without residual deficits; G43.909 Migraine, unspecified, not intractable, without status migrainosus; Z79.899 Other long term (current) drug therapy; K21.9 Gastro-esophageal reflux disease without esophagitis; Z79.01 Long term (current) use of anticoagulants; Z79.51 Long term (current) use of inhaled steroids
CPT/HCPCS: 88305; 45380; J2001; J2704

== ENCOUNTER → 2023-10-30 | Outpatient (CLI) | payer MEDICARE, BC ==
[2023-10-30 11:41] LABS: Basophils # (A) 0.03 X 10*3/uL (0.00-0.10); Basophils % (A) 0.4 %; Eosinophils # (A) 0.16 X 10*3/uL (0.04-0.35); Eosinophils % (A) 2.3 %; HCT 46.2 % (39.6-50.0); HGB 15.2 g/dL (13.0-17.0); Lymphocytes # (A) 1.06 X 10*3/uL (0.90-5.00); Lymphocytes % (A) 15.1 %; MCH 29.8 pg (27.0-32.0); MCHC 32.9 g/dL (32.0-37.0); MCV 90.6 FL (80.0-97.0); Mean Platelet Volume 10.2 FL (9.5-12.2); Monocytes # (A) 0.76 X 10*3/uL (0.20-1.00); Monocytes % (A) 10.8 %; NRBC Per 100 WBC 0 X 10*3/uL (0.00-0.01); Neutrophils # (A) 4.98 X 10*3/uL (1.80-7.70); Neutrophils % (A) 70.7 %; Platelet Count 204 X 10*3/uL (140-440); RDW 13.2 % (11.5-14.5); WBC 7.04 X 10*3/uL (4.50-10.00)
[2023-10-30 11:59] LABS: ALT 39 U/L (10-49); AST 27 U/L (14-35); Albumin 4.3 g/dL (3.8-4.9); Albumin/Globulin Ratio 1.87 Ratio (1.60-3.17); Alkaline Phosphatase 123 U/L (41-126); Blood Urea Nitrogen 14.3 mg/dL (9.0-27.0); Carbon Dioxide 25.1 mmol/L (21.6-31.8); Chloride 103 mmol/L (96-109); Chol/HDL Ratio 2.85 Ratio; Creatine Kinase 78 U/L (35-257); Globulin 2.3 g/dL (1.6-3.3); Glucose 104 mg/dL (70-110); LDL Cholesterol,Calculated 80.8 mg/dL (0.0-131.0); Potassium 4.6 mmol/L (3.5-5.5); Sodium 140 mmol/L (135-145); T4, Free (Free Thyroxine) 1.02 ng/dL (0.80-1.80); Total Bilirubin 0.4 mg/dL (0.3-1.2); Total Protein 6.6 g/dL (6.2-8.2); VLDL Calculation 15.28 mg/dL (5.00-40.00)
== END | disposition home or self-care (01) ==
LOC: LABPAT 07:13
PROVIDERS: ATTEND Internal Medicine Interventional Cardiology
DX: Z01.812 Encounter for preprocedural laboratory examination (principal); I25.10 Atherosclerotic heart disease of native coronary artery without angina pectoris; E78.5 Hyperlipidemia, unspecified
CPT/HCPCS: 80053; 80061; 82550; 84439; 84443; 85025

== ENCOUNTER 2023-11-06 05:57 | Day surgery (SDC) | payer MEDICARE, BC ==
[~2023-11-06 05:57] MED LIST changes: -ASPIRIN 325 MG TAB PO STA; -ATORVASTATIN 80 MG TAB PO STA; -HEPARIN SODIUM 1,000 UN/ML (10ML VL) IV ONE; +HEPARIN SODIUM,PORCINE (1 ML) 2,500 UNIT in SODIUM CHLORIDE 0.9% 250 ML IRRIGATION PRN; +HEPARIN SODIUM,PORCINE 10,000 UNIT in SODIUM CHLORIDE 0.9% 1,000 ML IRRIGATION PRN; -HYDROmorphone 0.5 MG/0.5 ML SYRINGE IVP STA; -IOPAMIDOL-370 125ML BTL INJ ONE; -LIDOCAINE 1% INJ 10MG/ML (20 ML MDV) SQ ONE; -MIDAZOLAM 2 MG/2 ML VIAL IVP ONE; -RX INFO: IV CONTRAST WAS GIVEN 1 EACH MISC MISCELLANE PRN; -SODIUM CHLORIDE 0.9% 1,000 ML IV ONE; -SODIUM CHLORIDE 0.9% 1,000 ML IV SCH; -SODIUM CHLORIDE 0.9% 1,000 ML in EMPTY BAG 1 BAG IV ONE; -VERAPAMIL SYRINGE (5 MG/10 ML) INTRAARTER ONE; -hydrALAZINE HCL 20 MG/ML 1 ML VIAL IVP STA
[2023-11-06] MEDS: ASPIRIN 325 MG TAB PO STA (06:42)
[2023-11-06] MEDS: SODIUM CHLORIDE 0.9% 1,000 ML in EMPTY BAG 1 BAG IV SCH ×2 (06:55→11:53)
[2023-11-06] MEDS: IV FLUID CONTINUATION 1,000 ML IV ONE (06:55)
[2023-11-06] MEDS ORDERED: fentaNYL (PF) 50 MCG/ML 2 ML AMP ONE (07:08)
[2023-11-06] MEDS ORDERED: VERAPAMIL 2.5 MG/ML 2 ML AMP ONE (07:08)
[2023-11-06] MEDS ORDERED: HEPARIN SODIUM 1,000 UN/ML (10ML VL) ONE (07:08)
[2023-11-06] MEDS ORDERED: LIDOCAINE 1% INJ 10MG/ML (20 ML MDV) ONE (07:08)
[2023-11-06] MEDS: MIDAZOLAM 2 MG/2 ML VIAL IVP ONE (07:45)
[2023-11-06] MEDS: LIDOCAINE 1% INJ 10MG/ML (20 ML MDV) SQ ONE (07:45)
[2023-11-06] MEDS: fentaNYL (PF) 50 MCG/1 ML VIAL IVP ONE ×2 (07:45→08:08)
[2023-11-06] MEDS: VERAPAMIL SYRINGE (5 MG/10 ML) INTRAARTER ONE (07:47)
[2023-11-06] MEDS: HEPARIN SODIUM 1,000 UN/ML (10ML VL) IVP ONE (07:48)
[2023-11-06] MEDS: NITROGLYCERIN 1000MCG/10ML SYRINGE INTRACORON ONE (08:23)
[2023-11-06] MEDS ORDERED: CLOPIDOGREL 75 MG TAB ONE (08:24)
[2023-11-06] MEDS ORDERED: NITROGLYCERIN SL TABS 0.4 MG TAB SUBLINGUAL PRN ×2 (08:25→08:26)
[2023-11-06] MEDS ORDERED: ZOLPIDEM 5 MG TAB PO PRN (08:26)
[2023-11-06] MEDS ORDERED: ATROPINE SULFATE 0.1 MG/ML 10ML SYRINGE IV PRN (08:26)
[2023-11-06] MEDS ORDERED: MAG HYDROX/AL HYDROX/SIMETH 30 ML CUP PO PRN (08:26)
[2023-11-06] MEDS ORDERED: RX INFO: IV CONTRAST WAS GIVEN 1 EACH MISC MISCELLANE PRN (08:26)
[2023-11-06] MEDS: CLOPIDOGREL 75 MG TAB PO ONE (08:28)
[2023-11-06] MEDS: IOPAMIDOL-370 100ML BTL INTRATHECA ONE (08:28)
[2023-11-06] MEDS: HEPARIN SODIUM,PORCINE (1 ML) 2,500 UNIT in SODIUM CHLORIDE 0.9% 250 ML IRRIGATION ONE (08:29)
[2023-11-06] MEDS: HEPARIN SODIUM,PORCINE 10,000 UNIT in SODIUM CHLORIDE 0.9% 1,000 ML IRRIGATION ONE (08:29)
--- NOTE | 2023-11-06 08:32 | P.PCN ---
Date of Procedure: 11/06/23 Operative Findings: CARDIAC CATHETERIZATION AND PERCUTANEOUS CORONARY INTERVENTION PERFORMING PHYSICIAN: Ag Young MD, VI PROCEDURE PERFORMED: 1. Selective right and left coronary angiogram 2. Left heart catheterization 3. Successful stenting of first diagonal branch using 3.0 x 23 mm Xience ASHLY with an excellent angiographic results 4. Adjunctive use of Dobler wire and intravascular imaging 5. Ultrasound-guided access of the right radial artery INDICATION: Newly diagnosis COMPLICATION: None APPROACH: Right radial art LEVEL OF SEDATION: Moderate with the sedation time off 40 minutes PROCEDURE DESCRIPTION: After obtaining informed consent the patient was brought to the cardiac Ornamental Ironworker. The right radial artery was cannulated using micropuncture technique under ultrasound guidance the micropuncture wire passed easily then I placed a 6 [place] 11 cm sheath at the right radial artery with a give the patient 2 mg of verapamil intra-arterial and 5000's of heparin intravenous. Selective right and left coronary angiogram performed using JR4 and JL 3.5 catheters with after that I did left heart catheterization using the JR4 catheter which crossed the aortic valve and I did pullback across aortic valve. After that I did an FFR of the left circumflex and subsequently PCI of the diagonal. After zeroing the Doppler wire and equalizing between the Doppler wire and guiding catheter the left main was engaged and left circumflex was wired with an IFR came to be at 0.93. Subsequently I did advance the Dobler wire toward the diagonal branch and then a wired the LAD using a run-through wire. Intravascular ultrasound was performed on the diagonal branch and showed a diameter between 2.5 to 3 mm. Predilatation was performed using 2.5 mm balloon before I deployed 3.0 x 23 mm stent and postdilated using 3.0 noncompliant balloon. Final angiogram showed excellent angiographic results and the procedure was completed with no complication SELECTIVE CORONARY ANGIOGRAM: The right coronary artery: Large-caliber vessel and a dominant vessel with mild in-stent restenosis involv ing the mid RCA Left main: Is angiographically normal The left circumflex: Large-caliber vessel nondominant vessel with intermediate lesion appears to be in the range of 50% documented to be nonflow limiting by Doppler wire The left anterior descending artery: Large-caliber vessel and appears to have mild disease only with gives rise into a large diagonal branch which has critical in-stent restenosis HEMODYNAMICS: The LVEDP was 20 mmHg with no significant gradient across aortic valve CONCLUSION: Intermediate disease involving the mid left circumflex documented to be nonflow limiting by Doppler wire Critical disease involving the diagonal branch. I did perform PCI of the diagonal branch Mild in-stent restenosis of the RCA Elevated left-sided filling pressure POSTPROCEDURE MANAGEMENT: 1. Dual antiplatelet therapy using aspirin and Plavix for at least 6 month 2. Aggressive cholesterol control 3. Follow-up with the patient
[2023-11-06] MEDS ORDERED: NON FORMULARY DRUG (Ubidecarenone [Co Q-10] 400 MG Capsule) PO SCH (09:00)
[2023-11-06] MEDS ORDERED: CLOPIDOGREL 75 MG TAB PO SCH (09:00)
[2023-11-06] MEDS: ATORVASTATIN 80 MG TAB PO STA (11:53)
[2023-11-06] MEDS: LORATADINE 10 MG TAB PO SCH (12:25)
[2023-11-06] MEDS: FLUTICASONE 110 MCG INHALER INHALATION SCH (20:26)
[2023-11-06] MEDS: SACUBITRIL/VALSARTAN 24 MG-26 MG TABLET PO SCH (21:31)
[2023-11-06] MEDS: methocarbamoL 750 MG TAB PO SCH (21:31)
[2023-11-06] MEDS: METOPROLOL TARTRATE 12.5 MG TAB PO SCH (21:31)
[2023-11-06] MEDS: GABAPENTIN 400 MG CAP PO SCH (21:31)
[2023-11-06] MEDS: ATORVASTATIN 40 MG TAB PO SCH (21:31)
[2023-11-06] MEDS: AMITRIPTYLINE HCL 25 MG TAB PO SCH (21:31)
[2023-11-07 07:15] LABS: African American GFR (CKD) >90 (>60 ml/min/1.73 sqM); Non-African American GFR(CKD) 89 (>60 ml/min/1.73 sqM)
--- NOTE | 2023-11-07 08:01 | P.DS ---
Providers Attending physician: Ag Young Consults: 11/06/23 08:26 Consult Physician Routine Consulting Provider: [facility] Consult Reason/Comments: Post Interventional Patient Do you want consulting provider notified?: Already Contacted Primary care physician: [facility] Course: The patient is a pleasant 68-year-old gentleman who underwent yesterday heart catheterization and PCI of the diagonal branch of the LAD. He was seen and evaluated this morning. He is asymptomatic and hemodynamically stable. The patient will be discharged home on dual antiplatelet therapy along with a statin and I will follow-up with the patient next week in the office Plan - Discharge Summary Discharge Rx Participant: No New Discharge Prescriptions: New Aspirin 81 mg PO DAILY #90 tab Continue Budesonide [Pulmicort Flexhaler] 2 puff INHALATION BID Atorvastatin [Lipitor] 40 mg PO HS Amitriptyline HCl [Elavil] 75 mg PO HS Metoprolol Tartrate [Lopressor] 12.5 mg PO BID Clopidogrel [Plavix] 75 mg PO DAILY #90 tab Gabapentin [Neurontin] 400 mg PO BID Ubidecarenone [Co Q-10] 200 mg PO DAILY Albuterol Inhaler [Ventolin Hfa Inhaler] 1 - 2 puff INHALATION Q6H PRN PRN Reason: sob Nitroglycerin Sl Tabs [Nitrostat] 0.4 mg SUBLINGUAL Q5M PRN PRN Reason: Chest Pain methocarbamoL 750 mg PO DAILY Loratadine [Claritin] 10 mg PO DAILY Sacubitril/Valsartan [Entresto 24 mg-26 mg Tablet] 1 tab PO BID Discharge Medication List Amitriptyline HCl [Elavil] 75 mg PO HS 11/02/15 [History] Atorvastatin [Lipitor] 40 mg PO HS 11/02/15 [History] Budesonide [Pulmicort Flexhaler] 2 puff INHALATION BID 11/02/15 [History] Metoprolol Tartrate [Lopressor] 12.5 mg PO BID 07/12/17 [History] Clopidogrel [Plavix] 75 mg PO DAILY #90 tab 07/05/18 [Rx] Albuterol Inhaler [Ventolin Hfa Inhaler] 1 - 2 puff INHALATION Q6H PRN 07/26/23 [History] Gabapentin [Neurontin] 400 mg PO BID 07/26/23 [History] Ubidecarenone [Co Q-10] 200 mg PO DAILY 07/26/23 [History] Loratadine [Claritin] 10 mg PO DAILY 10/31/23 [History] Nitroglycerin Sl Tabs [Nitrostat] 0.4 mg SUBLINGUAL Q5M PRN 10/31/23 [History] Sacubitril/Valsartan [Entresto 24 mg-26 mg Tablet] 1 tab PO BID 10/31/23 [History] methocarbamoL 750 mg PO DAILY 10/31/23 [History] Aspirin 81 mg PO DAILY #90 tab 11/07/23 [Rx] Follow up Appointment(s)/Referral(s): Ag Young MD [STAFF PHYSICIAN] - 1 Week (APPOINTMENT MADE ON SUNDAY, October @ 8:45AM ) Patient Instructions/Handouts: Moderate Sedation (ED), After Radial Heart Catheterization (GEN) Activity/Diet/Wound Care/Special Instructions: *NO LIFTING, PUSHING, OR PULLING ANYTHING OVER 5 POUNDS FOR 5 DAYS *NO DRIVING FOR 3 DAYS *YOU CAN REMOVE YOUR DRESSING TOMORROW BUT DO NOT SUBMERSE YOUR PUNCTURE SITE IN WATER FOR A FEW DAYS TO PREVENT INFECTION - SO NO TUB BATHS, POOLS, HOT TUBS, DI SHES...ETC *ANY SIGNS OF BLEEDING (HARDNESS, SWELLING, OR EXCESSIVE BRUISING) HOLD DIRECT PRESSURE ON YOUR PUNCTURE SITE AND COME TO THE NEAREST EMERGENCY ROOM TO GET YOUR PUNCTURE SITE LOOKED AT - DO NOT DRIVE YOURSELF! EITHER CALL EMS OR HAVE SOMEONE DRIVE YOU!
[2023-11-07] MEDS: CLOPIDOGREL 75 MG TAB PO SCH (08:19)
[2023-11-07] MEDS: ASPIRIN 81 MG PO SCH (08:19)
[2023-11-07 08:21] VITALS: BP 116/68; PULSE 60; RESP 15; TEMP 98.5
== END 2023-11-07 10:07 | disposition home or self-care (01) ==
LOC: CATHCVL 05:57 → 6NMEDSUR 08:25 → CATHCVL 11-07 10:07
PROVIDERS: ATTEND Internal Medicine Interventional Cardiology
DX: I25.10 Atherosclerotic heart disease of native coronary artery without angina pectoris (principal); I38 Endocarditis, valve unspecified; I10 Essential (primary) hypertension; I42.8 Other cardiomyopathies; E78.5 Hyperlipidemia, unspecified; Z88.1 Allergy status to other antibiotic agents; Z88.8 Allergy status to other drugs, medicaments and biological substances; Z79.02 Long term (current) use of antithrombotics/antiplatelets; Z79.82 Long term (current) use of aspirin; Z95.5 Presence of coronary angioplasty implant and graft; Z79.899 Other long term (current) drug therapy; Z95.0 Presence of cardiac pacemaker
CPT/HCPCS: 94640; 92978; 93458; 93799; 82565; 99152; 99153 ×2; C9600; C1887; C1769 ×3; C1894; C1753; C1874; C1725 ×2; J2250; J1644 ×3; J2001; Q9967; J3010; J2305

== ENCOUNTER → 2023-11-13 | Day surgery (SDC) | payer MEDICARE, BC ==
[~2023-11-13] MED LIST changes: -ALPRAZolam 0.25 MG TAB PO PRN; -ALPRAZolam 0.5 MG TAB PO PRN; -HEPARIN SODIUM,PORCINE (1 ML) 2,500 UNIT in SODIUM CHLORIDE 0.9% 250 ML IRRIGATION PRN; -HEPARIN SODIUM,PORCINE 10,000 UNIT in SODIUM CHLORIDE 0.9% 1,000 ML IRRIGATION PRN; -NITROGLYCERIN SL TABS 0.4 MG TAB SUBLINGUAL PRN; +SODIUM CHLORIDE 0.9% 1,000 ML IV SCH; +ceFAZolin 1 GM in SODIUM CHLORIDE 0.9% IRRIG BTL 250 ML IRRIGATION PRN
[2023-11-13] MEDS: IV FLUID CONTINUATION 1,000 ML IV ONE (12:45)
[2023-11-13 12:53] VITALS: BP 148/74; PULSE 68; RESP 16; TEMP 98.6
[2023-11-13] MEDS: SODIUM CHLORIDE 0.9% 1,000 ML IV SCH (12:56)
--- NOTE | 2023-11-13 17:29 | P.CRDCN ---
History of Present Illness History of present illness: This is Dr. 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 He and his are agreeable with the plan A left upper extremity venogram was performed and there is very mild stenosis in the subclavian axillary junction with mild collateralization However the vein is patent to allow for upgrade Will schedule upgrade HPI Patient has a dual-chamber pacemaker implanted in October 2015 for type II second-degree heart block At that time his left ventricular ejection fraction was normal at 55% He is almost 100% paced in the right ventricle Since then there has been a steady decline in his and his LV function. In 2018 his ejection fraction was 40%, subsequently in 2019 and 2019 as well as in 2021 his left-ventricular ejection fraction was 45% This year his left ventricular ejection fraction is 35 to 40% He also has known coronary artery disease status post stenting to the RCA as well as to the diagonal vessel He has a history of hypertension and dyslipidemia He is short of breath on exertion, class II CHF ROS: No fever chills or rigors, no cough, phlegm or expectoration, no nausea, vomiting or diarrhea, no hematuria, dysuria, no musculoskeletal complaints, no strokes or seizures, no skin lesions. EXAMINATION: Afebrile, pulse rate 68, respirations 16 Blood pressure 148/74 mmHg Pacemaker site is healing well No orthopnea REVIEW OF LABS, ECG & MEDICAL DATA Sodium 140, potassium 4.6, BUN 14 and creatinine 0.9 TSH normal 2.1 Medications include Entresto metoprolol Plavix Past Medical History Past Medical History: Asthma, Coronary Artery Disease (CAD), Chest Pain / Angina, CVA/TIA, GERD/Reflux, Hyperlipidemia, Hypertension, Sleep Apnea/CPAP/BIPAP Additional Past Medical History / Comment(s): CVA X3-SL WEAKNESS RT SIDE and migraines, SOB w/exertion, chronic bronchitis, constipation, uses cpap History of Any Multi-Drug Resistant Organisms: None Reported Past Surgical History: Back Surgery, Cholecystectomy, Heart Catheterization With Stent, Pacemaker Additional Past Surgical History / Comment(s): RT LEG Artery repaired from cardiac cath. 5 cardiac stents-last stent to 1rst diagonal branch on 11-07-23. PACEMAKER - [employer], cataracts removed Past Anesthesia/Blood Transfusion Reactions: No Reported Reaction, Motion Sickness Additional Past Anesthesia/Blood Transfusion Reaction / Comment(s): no hx blood transfusion Date of Last Stent Placement:: 06/2018,11-07-23 Type of Cardiac Device: Permanent Pacemaker Device Placement Date:: 11/04/15-[employer] left chest Smoking Status: Never smoker - Past Family History Father Family Medical History: Myocardial Infarction (VT) Mother Family Medical History: Myocardial Infarction (VT) Brother(s) Family Medical History: Myocardial Infarction (VT) Medications and Allergies Home Medications Medication Instructions Recorded Confirmed Type Amitriptyline HCl [Elavil] 75 mg PO HS 11/02/15 11/13/23 History Atorvastatin [Lipitor] 40 mg PO HS 11/02/15 11/13/23 History Budesonide [Pulmicort Flexhaler] 2 puff INHALATION BID 11/02/15 11/13/23 History Metoprolol Tartrate [Lopressor] 12.5 mg PO BID 07/12/17 11/13/23 History Clopidogrel [Plavix] 75 mg PO DAILY #90 tab 07/05/18 11/13/23 Rx Albuterol Inhaler [Ventolin Hfa 1 - 2 puff INHALATION Q6H PRN 07/26/23 11/12/23 History Inhaler] Gabapentin [Neurontin] 400 mg PO BID 07/26/23 11/13/23 History Ubidecarenone [Co Q-10] 200 mg PO DAILY 07/26/23 11/13/23 History Loratadine [Claritin] 10 mg PO DAILY 10/31/23 11/13/23 History Nitroglycerin Sl Tabs [Nitrostat] 0.4 mg SUBLINGUAL Q5M PRN 10/31/23 11/12/23 History Sacubitril/Valsartan [Entresto 24 1 tab PO BID 10/31/23 11/13/23 History mg-26 mg Tablet] methocarbamoL 750 mg PO HS 10/31/23 11/13/23 History Aspirin 81 mg PO DAILY #90 tab 11/07/23 11/13/23 Rx Allergies Allergy/AdvReac Type Severity Reaction Status Date / Time pregabalin [From Lyrica] Allergy Unknown Verified 11/12/23 12:21 levofloxacin [From Levaquin] AdvReac Confusion Verified 11/12/23 12:21 red dye AdvReac Nausea & Verified 11/12/23 12:21 Vomiting & Diarrhea Physical Exam Vitals: Vital Signs Temp Pulse Resp BP Pulse Ox 11/13/23 12:51 98.6 F 68 16 148/74 99 Intake and Output 11/13/23 11/13/23 11/13/23 06:59 14:59 22:59 Other: Weight 100 kg Results Current Medications Generic Name Dose Route Start Last Admin Trade Name Freq PRN Reason Stop Dose Admin Sodium Chloride 1,000 mls @ 50 mls/hr 11/13/23 05:57 11/13/23 12:56 Saline 0.9% IV 12/13/23 05:56 50 mls/hr .Q20H JANENE Administration Sodium Chloride 1,000 mls @ 50 mls/hr 11/13/23 05:57 Saline 0.9% IV 12/13/23 05:56 .Q20H JANENE Cefazolin Sodium 2 gm/ Sodium 50 mls @ 100 mls/hr 11/13/23 07:00 Chloride IVPB 11/13/23 23:00 ONCE PRN Pre-Op Cefazolin Sodium 1 gm/ Sodium 250 mls @ 250 mls/hr 11/13/23 07:00 Chloride IRRIGATION 11/13/23 23:00 ONCE PRN PRE-OP Intake and Output 11/13/23 11/13/23 11/13/23 06:59 14:59 22:59 Other: Weight 100 kg Patient Weight 11/14/23 06:59 Weight 100 kg
== END ==
LOC: CATHEP 12:06
PROVIDERS: ATTEND Internal Medicine
DX: Z45.010 Encounter for checking and testing of cardiac pacemaker pulse generator [battery] (principal); Z53.8 Procedure and treatment not carried out for other reasons; I44.2 Atrioventricular block, complete; I42.8 Other cardiomyopathies; I49.5 Sick sinus syndrome; I44.7 Left bundle-branch block, unspecified; I35.1 Nonrheumatic aortic (valve) insufficiency; E78.5 Hyperlipidemia, unspecified; G47.30 Sleep apnea, unspecified; I11.9 Hypertensive heart disease without heart failure; I25.119 Atherosclerotic heart disease of native coronary artery with unspecified angina pectoris; K21.9 Gastro-esophageal reflux disease without esophagitis; J45.909 Unspecified asthma, uncomplicated; Z95.5 Presence of coronary angioplasty implant and graft; I65.29 Occlusion and stenosis of unspecified carotid artery; Z86.73 Personal history of transient ischemic attack (TIA), and cerebral infarction without residual deficits; Z88.1 Allergy status to other antibiotic agents; Z91.041 Radiographic dye allergy status; Z79.51 Long term (current) use of inhaled steroids; Z79.02 Long term (current) use of antithrombotics/antiplatelets; Z79.899 Other long term (current) drug therapy; Z79.84 Long term (current) use of oral hypoglycemic drugs; Z79.82 Long term (current) use of aspirin

== ENCOUNTER 2024-01-08 12:47 | Day surgery (SDC) | payer MEDICARE, BC ==
[2024-01-08] MEDS: SODIUM CHLORIDE 0.9% 1,000 ML IV ONE (14:38)
[2024-01-08 14:56] LABS: Glucose,Whole Blood 90 mg/dL (70-110)
[2024-01-08 15:09] LABS: Basophils % (A) 1 %; Eosinophils # (A) 0.2 k/uL (0-0.7); Eosinophils % (A) 2 %; HCT 48.8 % (39.0-53.0); HGB 15.5 gm/dL (13.0-17.5); Hypochromasia Slight; Lymphocytes # (A) 1.5 k/uL (1.0-4.8); Lymphocytes % (A) 17 %; MCH 29.3 pg (25.0-35.0); MCHC 31.7 g/dL (31.0-37.0); MCV 92.4 fL (80.0-100.0); Mean Platelet Volume 7.5; Monocytes # (A) 0.5 k/uL (0-1.0); Monocytes % (A) 6 %; Neutrophils # (A) 6.1 k/uL (1.3-7.7); Neutrophils % (A) 73 %; Platelet Count 278 k/uL (150-450); RBC 5.28 m/uL (4.30-5.90); RDW 13.8 % (11.5-15.5); WBC 8.4 k/uL (3.8-10.6)
[2024-01-08 15:30] LABS: African American GFR (CKD) >90 (>60 ml/min/1.73 sqM); Anion Gap 16 mmol/L; Blood Urea Nitrogen 11 mg/dL (9-20); Calcium 9.8 mg/dL (8.4-10.2); Carbon Dioxide 28 mmol/L (22-30); Chloride 96 mmol/L (98-107); Glucose 85 mg/dL (74-99); Non-African American GFR(CKD) 86 (>60 ml/min/1.73 sqM); Potassium 4.2 mmol/L (3.5-5.1); Sodium 140 mmol/L (137-145)
[2024-01-08] MEDS ORDERED: HYDROmorphone (PF) 1 MG/ML ONE (15:54)
[2024-01-08] MEDS ORDERED: fentaNYL (PF) 50 MCG/ML 2 ML AMP ONE (15:54)
[2024-01-08] MEDS ORDERED: PROPOFOL 10 MG/ML 20 ML VIAL IV ONE (15:54)
[2024-01-08] MEDS ORDERED: MIDAZOLAM 2 MG/2 ML VIAL ONE (15:54)
[2024-01-08] MEDS: HEPARIN SODIUM,PORCINE (1 ML) 2,500 UNIT in SODIUM CHLORIDE 0.9% 250 ML IRRIGATION ONE (16:00)
[2024-01-08] MEDS: IOPAMIDOL-370 100ML BTL INJ ONE (16:07)
[2024-01-08] MEDS ORDERED: LIDOCAINE 1% INJ 10MG/ML (20 ML MDV) ONE (16:15)
[2024-01-08] MEDS: VANCOMYCIN 1,000 MG in SODIUM CHLORIDE 0.9% 250 ML IVPB STA (16:16)
[2024-01-08] MEDS: ceFAZolin 1 GM in SODIUM CHLORIDE 0.9% IRRIG BTL 250 ML IRRIGATION PRN (16:40)
[2024-01-08] MEDS: LIDOCAINE 1% INJ 10MG/ML (20 ML MDV) SQ ONE ×2 (16:48)
[2024-01-08] MEDS: ROPIVACAINE 5 MG/ML 30 ML VIAL MISCELLANE ONE ×2 (16:48)
[2024-01-08] MEDS: LIDOCAINE 1% INJ 10MG/ML (20 ML MDV) ONE (17:09)
--- NOTE | 2024-01-08 19:10 | P.PRLE ---
RE: LuisEric Dear Marc mr vidya underwent an upgrade to a BiV pacemaker for pacemaker dependency with 100% RV pacing and cardiomyopathy Hopefully this results in improvement in his LV function I will also increase his beta-blockers today to a long-acting metoprolol He will continue all his other heart failure medications and he should be on quadruple therapy in the near future for heart failure management Thank you for entrusting me with the care of the patient Warm regards Sincerely Alex Calles
--- NOTE | 2024-01-08 19:23 | P.EPPROC ---
- EP Procedure Note Electrophysiology Procedure Note: Diagnosis Congestive heart failure class II-III with 100% RV pacing and cardiomyopathy Dual-chamber pacemaker, complete heart block Procedure Implantation of new LV lead/upgrade to a biventricular pacemaker Final diagnosis Implantation of a new LV lead in the posterior lateral vein with LV 1-2 electrodes at 3 o'clock position in a steep GUYANESE view, and in the FELICIANO view on non-apical position BiV pacing with an LV offset of -40 ms resulted in a QRS width of between 170- 180 ms and the stimulus-peak of V6 at 76 ms Simultaneous RV LV pacing revealed a QRS width of 155 ms with a similar stimulus-peak of V6 at 76 ms Details Patient was brought to the EP lab in a fasting state. Written informed consent was obtained prior to the procedure. IV antibiotics including IV vancomycin administered. A left upper extremity venogram confirmed partial patency of the left subclavian vein An incision was made directly over the generator and carried down to level of the generator The original pocket was subcutaneous. Near-total capsulectomy had to be performed to reach the pectoralis muscle. A new subfascial pocket was made and extended caudally to accommodate the longer LV lead/BiV pacemaker. This part of the procedure a very long time as the leads were wrapped in thick capsule. The leads were slowly freed from the capsule. The installations remained intact. Impedances remained stable pacing thresholds remained stable It is noted that the atrial lead had a sharp band and it just as it entered the subclavian vein access site. This area was left undisturbed Access was obtained and the venous sheath was placed The coronary sinus was somewhat difficult to engage. The middle cardiac vein was easy to engage. Sheath was placed in the middle cardiac vein and then gradually withdrawn and the diagnostic catheter was then rotated anticlock john to enter the coronary sinus which had a steep takeoff. Venography of the coronary sinus revealed very diminutive branches. The lateral branch was diminutive and extremely tortuous with multiple hairpin bends The lateral vein was successfully cannulated and an angioplasty wire was placed distally but the [facility] medical/Andersen lead could not pass these events. It could not make it past the first band. A yao wire was placed to straighten the bands but even the yao wire/vantage wire did not pass the band at all Therefore the posterior lateral vein which is fairly posterior was targeted. The angioplasty wire and then the lead over it was placed as distally as possible and in the steep GUYANESE position this turned out to be at the 3 o'clock position and in the FELICIANO view in the nonapical location Diaphragmatic stimulation was noted at high output of 10 V, it was not noted below 5 V and the thresholds were excellent. Since the patient had moderate TR and septal wall motion abnormality on the echo, left bundle pacing was not attempted The long sheath was removed. The lead was secured to the underlying pectoralis muscle and then connected to the new biventricular pacemaker generator. The other leads were then connected to after explanting the original dual-chamber pacemaker generator Atrial lead [employer] model #4136 in the right atrial appendage originally implanted in 2016 P waves 2.5 mV, pacing impedance 475 ohms and pacing threshold 1 V at 0.4 ms RV lead, [employer] model #4137 implanted in the RV apex in 2016 No R waves. Pacing impedance 532 ohms and pacing threshold 1.5 V at 0.4 ms LV lead Andersen, model number [id number], 86 cm in length LV 1-2 bacteroids pacing impedance 1107 and pacing threshold 0.75 V at 0.4 ms 3 o'clock position in a steep GUYANESE view An FELICIANO view it was a normal apical position of these electrodes Pacing will be performed by the distalmost pair, LV 1-2 Please note the diaphragmatic stimulation was noted along the veins at 10 V but not at or below 5 V Implantation of the LV lead took a long time on account of difficult access of the main coronary sinus body, hairpin tortuosity, multiple, of the true lateral vein which is also quite diminutive and would not allow passage of the [facility] associate medical director nor the passage of the advantage wire and attempt to straighten it out The very posterior, posterior lateral vein had to be mapped carefully and m ultiple attempts had to be made before 3 o'clock position of the distal pair of electrodes was obtained The wound was then closed in 3 layers after securing of the leads and placing the biventricular pacemaker generator and explanting the original tool chamber pacemaker Wound was closed in 3 layers and dressed per protocol Antibiotic pouch was placed Patient tolerated procedure well without any acute complications
[2024-01-08] MEDS: FLUTICASONE 110 MCG INHALER INHALATION SCH (19:45)
[2024-01-08] MEDS: ACETAMINOPHEN IV (For NPO) 1,000 MG in EMPTY BAG 1 BAG IVPB ONE (19:52)
[2024-01-08] MEDS: SODIUM CHLORIDE 0.9% 1,000 ML IV SCH ×2 (20:06)
[2024-01-08] MEDS: GABAPENTIN 400 MG CAP PO SCH (20:11)
[2024-01-08] MEDS: SACUBITRIL/VALSARTAN 24 MG-26 MG TABLET PO SCH (20:11)
[2024-01-08] MEDS: ATORVASTATIN 40 MG TAB PO SCH (20:12)
[2024-01-09] MEDS: ACETAMINOPHEN TAB 325 MG TAB PO PRN (00:01)
[2024-01-09 07:44] VITALS: BP 137/63; PULSE 59; RESP 16; TEMP 98.3
--- NOTE | 2024-01-09 08:07 | P.DS ---
Providers Attending physician: Alex Calles Primary care physician: [facility] Course: Patient is doing well. No swelling no chest discomfort no oozing or bleeding from the pacemaker site No cough phlegm expectoration No chest pain no dizziness or lightheadedness On examination blood pressure 137/63 mmHg pulse rate in the 50s Heart sounds S1-S2 normal no murmurs or gallop Breath sounds are clear Chest x-ray shows LV lead in stable position, no pneumothorax Impression Dual-chamber pacemaker for complete heart block Pacemaker dependent with 100% RV pacing Development of progressive cardiomyopathy with heart failure symptoms Yesterday he was upgraded to a biventricular pacemaker with an LV lead Tip of the LV lead is in the 3 o'clock position in the FRENCH view, non-apical position Twelve-lead EKG shows BiV pacing Chest x-ray is within normal limits Plan switch to metoprolol succinate 50 mg p.o. daily Add spironolactone 25 mg p.o. daily Continue other heart failure medications Discharge home after pacemaker interrogation and follow-up with Dr. Young within 1 week Plan - Discharge Summary New Discharge Prescriptions: New Metoprolol Succinate [Toprol XL] 50 mg PO DAILY #90 tab Spironolactone 25 mg PO DAILY #90 tablet Discontinued Metoprolol Tartrate [Lopressor] 12.5 mg PO BID No Action Budesonide [Pulmicort Flexhaler] 2 puff INHALATION BID Atorvastatin [Lipitor] 40 mg PO HS Amitriptyline HCl [Elavil] 75 mg PO HS Clopidogrel [Plavix] 75 mg PO DAILY #90 tab Gabapentin [Neurontin] 400 mg PO BID Aspirin 81 mg PO DAILY #90 tab Ubidecarenone [Co Q-10] 200 mg PO DAILY Albuterol Inhaler [Ventolin Hfa Inhaler] 1 - 2 puff INHALATION Q6H PRN PRN Reason: sob Nitroglycerin Sl Tabs [Nitrostat] 0.4 mg SUBLINGUAL Q5M PRN PRN Reason: Chest Pain methocarbamoL 750 mg PO HS PRN PRN Reason: muslce spasms Loratadine [Claritin] 10 mg PO DAILY PRN PRN Reason: Allergy Symptoms Sacubitril/Valsartan [Entresto 24 mg-26 mg Tablet] 1 tab PO BID Empagliflozin [Jardiance] 10 mg PO DAILY Discharge Medication List Amitriptyline HCl [Elavil] 75 mg PO HS 11/02/15 [History] Atorvastatin [Lipitor] 40 mg PO HS 11/02/15 [History] Budesonide [Pulmicort Flexhaler] 2 puff INHALATION BID 11/02/15 [History] Clopidogrel [Plavix] 75 mg PO DAILY #90 tab 07/05/18 [Rx] Albuterol Inhaler [Ventolin Hfa Inhaler] 1 - 2 puff INHALATION Q6H PRN 07/26/23 [History] Gabapentin [Neurontin] 400 mg PO BID 07/26/23 [History] Ubidecarenone [Co Q-10] 200 mg PO DAILY 07/26/23 [History] Loratadine [Claritin] 10 mg PO DAILY PRN 10/31/23 [History] Nitroglycerin Sl Tabs [Nitrostat] 0.4 mg SUBLINGUAL Q5M PRN 10/31/23 [History] Sacubitril/Valsartan [Entresto 24 mg-26 mg Tablet] 1 tab PO BID 10/31/23 [History] methocarbamoL 750 mg PO HS PRN 10/31/23 [History] Aspirin 81 mg PO DAILY #90 tab 11/07/23 [Rx] Empagliflozin [Jardiance] 10 mg PO DAILY 01/03/24 [History] Metoprolol Succinate [Toprol XL] 50 mg PO DAILY #90 tab 01/08/24 [Rx] Spironolactone 25 mg PO DAILY #90 tablet 01/08/24 [Rx] Follow up Appointment(s)/Referral(s): Ag Young MD [STAFF PHYSICIAN] - 1 Week Activity/Diet/Wound Care/Special Instructions: PATIENT EDUCATION MATERIAL Instructions following a heart rhythm device implant. 1. Keep dressing DRY for 5 DAYS. You may cover the area with Saran or Cling Wrap, prior to a shower. 2. The dressing will be removed in the Device [facility] at [facility]. Absorbable sutures were used to close the wound. 3. Avoid raising the left arm above the shoulder level. 4 week restriction 4. Avoid arm movements, like backscratching, rubbing the head, or pulling on a cord. 4 weeks restriction 5. Gentle range of motion movements of the shoulder, closest to the incision should be performed to avoid a frozen shoulder. (Pendulum exercises of the shoulder) 6. The opposite arm may be used freely. 7. Avoid driving for 7 days. 8. Avoid activities such as golfing, swimming, weed whacking, lifting more than 10 pounds weight, bowling, gymnastics and weight training/lifting. (6 weeks restriction) 9. Activities such as wood chopping with an axe, pull-ups in the gymnasium, power lifting, arc-welding, being close to home induction cooktops will always be a problem. 10. Arm sling is only a reminder not to raise the arm above the head. You do not need to keep the arm completely immobilized. Your free to move the arm and use it and for normal activities. In case of any problems, please call [facility], [place], @ [phone], Attention: Device Clinic Device clinic follow-up in 5 days Follow-up with primary director public in 2-3 months Stop metoprolol tartrate Start metoprolol succinate 50 mg p.o. daily Start spironolactone 25 mg p.o. daily Continue all other medications as before Discharge Disposition: HOME SELF-CARE
[2024-01-09] MEDS: DAPAGLIFLOZIN PROPANEDIOL 5 MG TABLET PO SCH (09:03)
[2024-01-09] MEDS: ASPIRIN 81 MG PO SCH (09:03)
[2024-01-09] MEDS: METOPROLOL SUCCINATE (ER) 50 MG TAB.ER.24H PO SCH (09:03)
[2024-01-09] MEDS: SPIRONOLACTONE 25 MG TAB PO SCH (09:04)
[2024-01-09] MEDS: CLOPIDOGREL 75 MG TAB PO SCH (09:04)
--- NOTE | 2024-01-09 09:08 | XR ---
EXAMINATION TYPE: XR chest 2V DATE OF EXAM: 01/09/2024 COMPARISON: 11/05/2015 HISTORY: Shortness of breath TECHNIQUE: Frontal and lateral views of the chest are obtained. FINDINGS: Scattered senescent parenchymal changes noted. Hyperinflation compatible with COPD. No evidence for infiltrate. No evidence for atelectasis. Heart size is stable. Mediastinal structures are stable and grossly unremarkable. No evidence for hilar prominence. Degenerative changes dorsal spine. IMPRESSION: 1. No evidence for acute pulmonary disease.
== END 2024-01-09 12:16 | disposition home or self-care (01) ==
LOC: CATHEP 12:47 → 6NMEDSUR 18:41 → CATHEP 01-09 12:16
PROVIDERS: ATTEND Internal Medicine Clinical Cardiac Electrophysiology
DX: I11.0 Hypertensive heart disease with heart failure (principal); I50.89 Other heart failure; I44.2 Atrioventricular block, complete; I42.8 Other cardiomyopathies; I25.10 Atherosclerotic heart disease of native coronary artery without angina pectoris; I35.1 Nonrheumatic aortic (valve) insufficiency; Z95.5 Presence of coronary angioplasty implant and graft; R01.1 Cardiac murmur, unspecified; I44.7 Left bundle-branch block, unspecified; E78.5 Hyperlipidemia, unspecified; G47.30 Sleep apnea, unspecified; Z95.0 Presence of cardiac pacemaker; Z86.73 Personal history of transient ischemic attack (TIA), and cerebral infarction without residual deficits; Z88.1 Allergy status to other antibiotic agents; Z88.8 Allergy status to other drugs, medicaments and biological substances; Z91.041 Radiographic dye allergy status; Z79.51 Long term (current) use of inhaled steroids; Z79.899 Other long term (current) drug therapy; Z79.84 Long term (current) use of oral hypoglycemic drugs; Z79.02 Long term (current) use of antithrombotics/antiplatelets; Z79.82 Long term (current) use of aspirin
CPT/HCPCS: 33225; 33229; 71046; 80048; 85025; 93005